=== PATIENT | male | born 1965 | race Caucasian/White ===

== ENCOUNTER 2017-02-17 09:30 | Emergency (ER) | payer OTHER ==
[~2017-02-17] VITALS: Ht 182.9 cm; Wt 118.0 kg
[~2017-02-17 09:30] MED LIST: BACT800T5 PO; CALTTAB5 PO; CITA20 PO; CLIN1CAP5 PO; PERC10TA27 PO; ROSU20 PO; WELL150T PO
[2017-02-17 09:32] VITALS: BP 177/95; PULSE 68; RESP 20; TEMP 99; O2SAT 98
--- NOTE | 2017-02-17 10:01 | PD ---
HPI Chief Complaint: ENT Complaint Time Seen by Provider: 10:00 Travel History International Travel<30 days: No Contact w/Intl Traveler<30days: No Traveled to known affect area: No History of Present Illness HPI 51-year-old male presents to emergency Department with complaint of left-sided throat pain since Sunday. He said it was horrible pain on . He called his primary care provider and they prescribed him a lidocaine mouth rinse that has not been helping. He has also been using cough drops that have not been helping. Is able to swallow his own saliva. Reports feeling a lump to the left side of his neck and throat. Denies nasal congestion, ear pain, cough. Denies fever, chills, nausea, vomiting. Allergies to Naprosyn. No other modifying factors or associated signs and symptoms. PFSH Past Medical History Hx Anticoagulant Therapy: Yes (XERALTO) Arthritis: Yes Asthma: Yes Atrial Fibrillation: Yes (PAROXYSMAL ATRIAL FIBRILLATION) Autoimmune Disease: No Blood Disorders: No Anxiety: No Depression: Yes (MAJOR DEPRESSION IN PARTIAL REMISSION) Heart Rhythm Problems: No Cancer: No Cardiovascular Problems: Yes High Cholesterol: Yes (HYPERLIPIDEMIA) Chemotherapy: No Chest Pain: No Congestive Heart Failure: Yes Cerebrovascular Accident: Yes Coronary Artery Disease: Yes Diabetes: Yes Diminished Hearing: No Endocrine: Yes GERD: No Genitourinary: No Headaches: Yes Hiatal Hernia: No Hypertension: Yes Immune Disorder: No Implanted Vascular Access Dvce: Yes Kidney Stones: No Musculoskeletal: Yes (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) Neurologic: Yes (MILD NONPROLIFERATIVE DIABETIC RETINOPATHY/ POLYNEUROPATHY) Psychiatric: Yes Reproductive: No Respiratory: Yes Integumentary: Yes Immunizations Current: Yes Migraines: No Myocardial Infarction: Yes Radiation Therapy: No Renal Failure: Yes (CHRONIC KIDNEY DISEASE STAGE IV) Sickle Cell Disease: No Sleep Apnea: Yes Thyroid Disease: Yes (HYPERTHYROIDISM) Ulcer: No Past Surgical History Abdominal Surgery: Yes (PEG) AICD: Yes (ST TAQUERIA) Arteriovenous Shunt: No Cardiac Surgery: Yes (PACEMAKER/ TAKEN OUT 2013, BYPASS) Ear Surgery: No Endocrine Surgery: No Eye Surgery: No Genitourinary Surgery: No Insulin Pump: No Joint Replacement: No Oral Surgery: No Pacemaker: No Thoracic Surgery: No Other Surgery: Yes (PENILE IMPLANT, GI BYPASS) Social History Alcohol Use: No Tobacco Use: No Substance Use: No Allergies-Medications (Allergen,Severity, Reaction): Coded Allergies: Naprosyn (Verified Allergy, Mild, GI UPSET, 02/17/17) *MDRO Multi-Drug Resistant Organism (Verified Adverse Reaction, Unknown, ) MRSA foot wound 07/2015. Reported Meds & Prescriptions Reported Meds & Active Scripts Active Clindamycin Hcl (Clindamycin HCl) 150 Mg Cap 1 Tab PO QID Bactrim DS (Sulfamethoxazole-Trimethoprim DS) 1 Tab Tab 1 Tab PO BID Reported Percocet 10/325 (Oxycodone/Acetaminophen) Oxycodone 10/325 Acetaminophen Tab 1 Tab PO 2-3 TIMES A DAY PRN Crestor (Rosuvastatin Calcium) 20 Mg Tab 20 Mg PO HS Wellbutrin Sr (Bupropion HCl) 150 Mg Tab 150 Mg PO DAILY Caltrate 600 (Calcium Carbonate) Tab 600 Mg PO DAILY Celexa 20 Mg Tab (Citalopram Hydrobromide) 20 Mg Tab 20 Mg PO DAILY Review of Systems Except as stated in HPI: all other systems reviewed are Neg Physical Exam Narrative GENERAL: Well-nourished, well-developed male patient, in no acute distress; low-grade fever 99.3; nontoxic-appearing; wheelchair-bound SKIN: Warm and dry. No rash. HEAD: Atraumatic. Normocephalic. EYES: Pupils equal and round at 3 mm with brisk reaction. No scleral icterus. No injection or drainage. PERRLA. ENT: Mucosa pink and dry. No Uvular edema. Left sided tonsillar deviation noted. No uvular deviation. Airway patent. EARS: Bilateral pinnae and external canals appear within normal limits. Bilateral tympanic membranes without erythema, dullness or perforation.. NECK: Trachea midline. Left Anterior cervical tenderness on palpation. CARDIOVASCULAR: Regular rate. RESPIRATORY: No accessory muscle use. GASTROINTESTINAL: Rounded. MUSCULOSKELETAL: Left BKA. No obvious deformities. No clubbing. No cyanosis. No edema. NEUROLOGICAL: Awake and alert. Oriented 3. No obvious cranial nerve deficits. Motor grossly within normal limits. Normal speech. Moves all extremities. PSYCHIATRIC: Appropriate mood and affect; insight and judgment normal. Data Data Last Documented VS Vital Signs Date Time Temp Pulse Resp B/P Pulse Ox O2 Delivery O2 Flow Rate FiO2 02/17/17 10:10 18 02/17/17 09:32 99.0 68 177/95 98 Room Air Orders Group A Rapid Strep Screen (02/17/17 10:07) Strep Culture (Group A) (02/17/17 10:10) MDM Medical Decision Making Medical Screen Exam Complete: Yes Emergency Medical Condition: Yes Medical Record Reviewed: Yes Differential Diagnosis Peritonsillar abscess, pharyngitis, strep throat Narrative Course 51-year-old male with suspected left-sided peritonsillar abscess. Patient was initially evaluated in fast track and moved to a medical pod. Dr. Lal will assume patient care and report was given. See his note for final disposition. Geneva Myles Feb 17, 2017 10:00
[2017-02-17] MEDS ORDERED: PRED20 PO (11:28)
[2017-02-17] MEDS ORDERED: CLIN1CAP5 PO (11:28)
--- NOTE | 2017-02-17 11:28 | PD ---
Physical Exam Narrative Patient was seen by physician activities assistant and signed out to me. Data Data Last Documented VS Vital Signs Date Time Temp Pulse Resp B/P Pulse Ox O2 Delivery O2 Flow Rate FiO2 02/17/17 10:10 18 02/17/17 09:32 99.0 68 177/95 98 Room Air Orders Group A Rapid Strep Screen (02/17/17 10:07) Strep Culture (Group A) (02/17/17 10:10) Ampicillin-Sulbactam Inj (Unasyn Inj) (02/17/17 11:30) Dexamethasone Inj (Decadron Inj) (02/17/17 11:30) Sodium Chlorid 0.9% 500 Ml Inj (Ns 500 M (02/17/17 11:45) MDM Supervised Visit with CHRISTIANO: Yes Differential Diagnosis Differential diagnosis including tonsillitis, tonsillitis with peritonsillar edema, peritonsillar abscess. Narrative Course 51-year-old male with sore throat started 3 days ago. Patient denies any shortness of breath. Patient has pain on left-sided throat with swallowing. Patient was seen by my activities assistant and signed out to me. On examination patient has edema redness swelling left-sided throat. No stridor or wheezes. Patient can swallow saliva. Unasyn 3 g IV. Decadron 8 mg IV. Diagnosis Primary Impression: Tonsillitis Additional Impression: Edema Qualified Code: R60.9 - Edema, unspecified type Patient Instructions: General Instructions Additional Instruction: Clindamycin and prednisone as directed. Return in a.m. for recheck. Return immediately if increasing shortness of breath or unable to swallow. Med/Other Pt SpecificInfo: Prescription(s) given Scripts Prednisone 20 Mg Tab20 Mg PO BID #14 TAB Prov:Oleg Lal MD 02/17/17 Clindamycin 150 Mg Cap2 Tab PO Q6H #80 CAP Prov:Oleg Lal MD 02/17/17 Disposition: 01 DISCHARGE HOME Condition: Stable Oleg Lal MD Feb 17, 2017 11:28
[2017-02-17] MEDS ORDERED: AMPICILLIN-SULBACTAM INJ 3 GM in SODIUM CHLORIDE 0.9% INJ 100 ML IV ONE (11:30)
[2017-02-17] MEDS ORDERED: DEXAMETHASONE SOD PHOS 4 MG/ML VIAL IV PUSH ONE (11:30)
[2017-02-17] MEDS ORDERED: SODIUM CHLORID 0.9% 500 ML INJ 500 ML IV ONE (11:45)
[2017-02-18] MEDS ORDERED: OMEP20TA PO (12:43)
[2017-02-18] MEDS ORDERED: CITA20TA4 PO (12:43)
[2017-02-18] MEDS ORDERED: LISI-515 PO (12:43)
[2017-02-18] MEDS ORDERED: METO-309 PO (12:43)
[2017-02-18] MEDS ORDERED: ROSU40 PO (12:43)
[2017-02-18] MEDS ORDERED: XARE15TA PO (12:43)
[2017-02-18] MEDS ORDERED: ISOS120T PO (12:43)
== END 2017-02-17 13:50 | disposition home or self-care (01) ==
LOC: NEPC 09:30
DX: J03.90 Acute tonsillitis, unspecified (principal); R60.9 Edema, unspecified; I48.0 Paroxysmal atrial fibrillation; E78.00 Pure hypercholesterolemia, unspecified; I50.9 Heart failure, unspecified; I25.10 Atherosclerotic heart disease of native coronary artery without angina pectoris; E11.9 Type 2 diabetes mellitus without complications; I12.9 Hypertensive chronic kidney disease with stage 1 through stage 4 chronic kidney disease, or unspecified chronic kidney disease; I25.2 Old myocardial infarction; N18.4 Chronic kidney disease, stage 4 (severe); E05.90 Thyrotoxicosis, unspecified without thyrotoxic crisis or storm; I69.359 Hemiplegia and hemiparesis following cerebral infarction affecting unspecified side; Z79.01 Long term (current) use of anticoagulants
CPT/HCPCS: 87081; 87880; 96365; 96366; 96375; 99283; J0295; J1100; J7040

== ENCOUNTER 2017-02-18 12:15 | Emergency (ER) | payer OTHER ==
[~2017-02-18] VITALS: Ht 182.9 cm; Wt 115.5 kg
[~2017-02-18 12:15] MED LIST changes: +PRED20 PO
[2017-02-18 12:21] VITALS: BP 172/76; PULSE 36; RESP 18; TEMP 97.7; O2SAT 97
[2017-02-18] MEDS ORDERED: ISOS120T PO (12:43)
[2017-02-18] MEDS ORDERED: METO-309 PO (12:43)
[2017-02-18] MEDS ORDERED: CITA20TA4 PO (12:43)
[2017-02-18] MEDS ORDERED: OMEP20TA PO (12:43)
[2017-02-18] MEDS ORDERED: LISI-515 PO (12:43)
[2017-02-18] MEDS ORDERED: XARE15TA PO (12:43)
[2017-02-18] MEDS ORDERED: ROSU40 PO (12:43)
[2017-02-18 12:55] VITALS: BP 149/69; PULSE 86; RESP 18; O2SAT 98
--- NOTE | 2017-02-18 13:11 | PD ---
HPI Chief Complaint: Medical Clearance Time Seen by Provider: 12:30 Travel History International Travel<30 days: No Contact w/Intl Traveler<30days: No Traveled to known affect area: No History of Present Illness HPI Patient comes back to the emergency department for recheck of a tonsillitis that diagnosed yesterday. Patient reports he feels greatly improved. Denies any fevers, difficulty swallowing, headache, nausea, vomiting, chest pain, shortness of breath, weakness, abdominal pain, neck pain, or diarrhea. States that he is going to corn picker his antibiotic after he leaves the emergency department and has a follow-up appointment with his primary care doctor on Sunday. He states he just came in because he was told to yesterday for recheck. PFSH Past Medical History Hx Anticoagulant Therapy: Yes Arthritis: Yes Asthma: Yes Atrial Fibrillation: Yes (PAROXYSMAL ATRIAL FIBRILLATION) Autoimmune Disease: No Blood Disorders: No Anxiety: No Depression: Yes Heart Rhythm Problems: No Cancer: No Cardiovascular Problems: Yes (CABG) High Cholesterol: Yes Chemotherapy: No Chest Pain: No Congestive Heart Failure: Yes Cerebrovascular Accident: Yes Coronary Artery Disease: Yes Diabetes: No Diminished Hearing: No Endocrine: Yes GERD: No Genitourinary: No Headaches: Yes Hiatal Hernia: No Hypertension: Yes Immune Disorder: No Implanted Vascular Access Dvce: Yes Kidney Stones: No Musculoskeletal: Yes (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) Neurologic: Yes (MILD NONPROLIFERATIVE DIABETIC RETINOPATHY/ POLYNEUROPATHY) Psychiatric: Yes Reproductive: No Respiratory: Yes Integumentary: Yes Immunizations Current: Yes Migraines: No Myocardial Infarction: Yes Radiation Therapy: No Renal Failure: Yes Sickle Cell Disease: No Sleep Apnea: Yes Thyroid Disease: Yes (HYPER) Ulcer: No Past Surgical History Abdominal Surgery: Yes AICD: Yes (ST TAQUERIA) Arteriovenous Shunt: No Cardiac Surgery: Yes (PACEMAKER/ TAKEN OUT 2013) Coronary Artery Bypass Graft: Yes Ear Surgery: No Endocrine Surgery: No Eye Surgery: No Genitourinary Surgery: Yes (prosthetic penis) Insulin Pump: No Joint Replacement: No Oral Surgery: No Pacemaker: No Thoracic Surgery: No Other Surgery: Yes (PENILE IMPLANT, PEG) Social History Alcohol Use: No Tobacco Use: No Substance Use: No Allergies-Medications (Allergen,Severity, Reaction): Coded Allergies: Naprosyn (Verified Allergy, Mild, GI UPSET, 02/18/17) *MDRO Multi-Drug Resistant Organism (Verified Adverse Reaction, Unknown, ) MRSA foot wound 07/2015. Reported Meds & Prescriptions Reported Meds & Active Scripts Active Reported Xarelto (Rivaroxaban) 15 Mg Tab 15 Mg PO DAILY Crestor (Rosuvastatin Calcium) 40 Mg Tab 40 Mg PO DAILY Omeprazole 20 Mg Tab 20 Mg PO DAILY Citalopram (Citalopram Hydrobromide) 20 Mg Tab 20 Mg PO DAILY Lopressor (Metoprolol Tartrate) 50 Mg Tab 50 Mg PO DAILY Lisinopril 20 Mg Tab 20 Mg PO DAILY Isosorbide Mononitrate ER (Isosorbide Mononitrate) 120 Mg Hima 120 Mg PO DAILY Review of Systems Except as stated in HPI: all other systems reviewed are Neg Physical Exam Narrative GENERAL: Well-developed, overly nourished, in no acute distress, and non-ill appearing. SKIN: Focused skin assessment warm and dry. HEAD: Atraumatic. Normocephalic. EYES: Pupils equal and round. EOMI. No scleral icterus. No injection or drainage. ENT: No nasal bleeding or discharge. Mucous membranes pink and moist. Tonsils are nonerythematous and without exudate. Uvula is midline. Patient is talking in full sentences and swallowing own saliva without difficulty. NECK: Trachea midline. No cervical lymphadenopathy. Supple. No nuclear rigidity. CARDIOVASCULAR: Regular rate and rhythm. No murmur appreciated. RESPIRATORY: No accessory muscle use. No respiratory distress. Clear to auscultation. Breath sounds equal bilaterally. GASTROINTESTINAL: Abdomen soft, non-tender, nondistended. Hepatic and splenic margins not palpable. Normal bowel sounds 4. No pulsatile mass. MUSCULOSKELETAL: No obvious deformities. No clubbing. No cyanosis. No edema. Full range of motion. Left BKA noted. NEUROLOGICAL: Awake and alert. No obvious cranial nerve deficits. Motor grossly within normal limits. Normal speech. PSYCHIATRIC: Appropriate mood and affect; insight and judgment normal. Data Data Last Documented VS Vital Signs Date Time Temp Pulse Resp B/P Pulse Ox O2 Delivery O2 Flow Rate FiO2 02/18/17 13:58 84 16 141/65 98 02/18/17 12:21 97.7 Orders Electrocardiogram (02/18/17 ) Ecg Monitoring (02/18/17 12:38) MDM Medical Decision Making Medical Screen Exam Complete: Yes Emergency Medical Condition: Yes Interpretation(s) EKG reviewed by Dr. Healy, shows sinus rhythm with ventricular rate of 84. No STEMI acute changes. Differential Diagnosis Peritonsillar abscess, tonsillitis, recheck, arrhythmia, bradycardia, other Narrative Course Secondary to patient's initial cardiac heart rate that was noted in triage. Patient was placed on a monitor and monitored in the ER with ventricular rate remaining in the 70s. EKG shows no acute abnormalities. Patient denies any symptoms. Discuss this case with Dr. Healy, prior discharge, who in agreement with plan of care and disposition. Patient stable for discharge and outpatient follow-up. Patient in no obvious distress upon re-evaluation. All EKG result(s) discussed with patient. Any questions/concerns in reference to patient diagnosis/ condition discussed and clarified prior to patient's discharge. Reinforced sheer importance of close follow up with patient's primary physician or primary care clinic. Instructed patient to return to ED immediately, if symptoms return/ worsen. Pt showed understanding of above instructions. Further instructions and recommendations were detailed in discharge paperwork. Pt ambulated without difficulty out of ED at discharge. Diagnosis Primary Impression: Tonsillitis Referrals: [facility] Patient Instructions: Bradycardia (ED), General Instructions Additional Instructions: Follow-up with your primary care physician in 2 days as scheduled for reevaluation of your low heart rate that was noted at triage and for recheck of tonsillitis. Take all medication as previously prescribed. Return to the emergency department if symptoms get worse. Disposition: 01 DISCHARGE HOME Condition: Stable Stalin Hope Feb 18, 2017 13:11
[2017-02-18 13:58] VITALS: BP 141/65; PULSE 84; RESP 16; O2SAT 98
--- NOTE | 2017-02-19 14:18 | EKG ---
Date Performed: 02/18/2017 Time Performed: 12:44:01 PTAGE: 51 years EKG: Sinus rhythm WITH FREQUENT Atrial PREMATURE COMPLEXES WITH OCCASIONAL SUPRAVENTRICULAR PREMATURE COMPLEXES ST DEV IATION AND MODERATE T-WAVE ABNORMALITY, CONSIDER LATERAL ISCHEMIA Possible inferior wall infarct. Sin ce the prior tracing, the frequent premature atrial contractions are new. Some are aberrantly conduct ed and PVCs cannot be entirely excluded, but there is no axis shift. There has been an overal increas e in the nonspecific ST T-wave changes. Clinical correlation remains important. An inferior wall infa rct of indeterminant age cannot be excluded. ABNORMAL ECG PREVIOUS TRACING : 12/16/2013 14.32 DOCTOR: Simran Quan Interpretating Date/Time 02/19/2017 14:17:47
== END 2017-02-18 14:26 | disposition home or self-care (01) ==
LOC: NEPD 12:15
DX: J03.90 Acute tonsillitis, unspecified (principal); I48.0 Paroxysmal atrial fibrillation; I50.9 Heart failure, unspecified; I25.10 Atherosclerotic heart disease of native coronary artery without angina pectoris; I10 Essential (primary) hypertension; I69.959 Hemiplegia and hemiparesis following unspecified cerebrovascular disease affecting unspecified side; I25.2 Old myocardial infarction; Z79.899 Other long term (current) drug therapy; Z51.89 Encounter for other specified aftercare
CPT/HCPCS: 93005

== ENCOUNTER 2017-07-24 18:48 | Inpatient (IN) | payer OTHER, MEDICAID, MEDICARE ==
[~2017-07-24] VITALS: Ht 182.9 cm; Wt 128.3 kg
[~2017-07-24 18:48] MED LIST changes: -BACT800T5 PO; -CALTTAB5 PO; -CITA20 PO; +CITA20TA4 PO; -CLIN1CAP5 PO; +ISOS120T PO; +LISI-515 PO; +METO-309 PO; +OMEP20TA PO; -PERC10TA27 PO; -PRED20 PO; -ROSU20 PO; +ROSU40 PO; -WELL150T PO; +XARE15TA PO
[2017-07-24 19:22] VITALS: BP 207/92; PULSE 68; RESP 20; TEMP 98.7; O2SAT 97
[2017-07-24] MEDS ORDERED: GLIP5TAB8 PO (19:22)
[2017-07-24] MEDS ORDERED: BUPR150XL PO (19:22)
[2017-07-24] MEDS ORDERED: DEXTROSE 50% IN WATER 50 ML SYRINGE IV PUSH ONE ×2 (19:30→22:00)
--- NOTE | 2017-07-24 19:57 | PD ---
HPI Chief Complaint: Diabetic Time Seen by Provider: 19:26 Travel History International Travel<30 days: No Contact w/Intl Traveler<30days: No Traveled to known affect area: No History of Present Illness HPI Patient is a 51-year-old male, with history of hypertension and diabetes as well as for strokes, who comes in complaining of low blood sugar. He takes glipizide for his diabetes, and his last dose was at 9 PM last night. He says he was feeling fine, but earlier this morning had an episode of low blood sugar. The fire department came and found her sugar to be 20, he was given dextrose and return to baseline so he was transported to the hospital. This happened again this evening and EMS arrived and again gave him dextrose. This time he is transported to the hospital. He currently has no complaints. He has residual left-sided weakness as well as confusion from his previous strokes. He denies chest pain, shortness of breath, fevers, abdominal pain, nausea or vomiting. He does say that he ate a turkey sandwich today. PFSH Past Medical History Hx Anticoagulant Therapy: Yes Arthritis: Yes Asthma: Yes Atrial Fibrillation: Yes (PAROXYSMAL ATRIAL FIBRILLATION) Autoimmune Disease: No Blood Disorders: No Anxiety: No Depression: Yes Heart Rhythm Problems: No Cancer: No Cardiovascular Problems: Yes (CABG) High Cholesterol: Yes Chemotherapy: No Chest Pain: No Congestive Heart Failure: Yes Cerebrovascular Accident: Yes Coronary Artery Disease: Yes Diabetes: Yes Patient Takes Glucophage: No Diminished Hearing: No Endocrine: Yes GERD: No Genitourinary: No Headaches: Yes Hiatal Hernia: No Hypertension: Yes Immune Disorder: No Implanted Vascular Access Dvce: Yes Kidney Stones: No Musculoskeletal: Yes (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) Neurologic: Yes (MILD NONPROLIFERATIVE DIABETIC RETINOPATHY/ POLYNEUROPATHY) Psychiatric: Yes Reproductive: No Respiratory: Yes Integumentary: Yes Immunizations Current: Yes Migraines: No Myocardial Infarction: Yes Radiation Therapy: No Renal Failure: Yes Sickle Cell Disease: No Sleep Apnea: Yes Thyroid Disease: Yes (HYPER) Ulcer: No Past Surgical History Abdominal Surgery: Yes (GASTRIC BYPASS) AICD: Yes (ST TAQUERIA) Arteriovenous Shunt: No Cardiac Surgery: Yes (PACEMAKER/ TAKEN OUT 2013) Coronary Artery Bypass Graft: Yes Ear Surgery: No Endocrine Surgery: No Eye Surgery: No Genitourinary Surgery: Yes (prosthetic penis) Insulin Pump: No Joint Replacement: No Oral Surgery: No Pacemaker: No Thoracic Surgery: No Other Surgery: Yes (PENILE IMPLANT, PEG) Social History Alcohol Use: Yes (SOCIAL) Tobacco Use: No Substance Use: No Allergies-Medications (Allergen,Severity, Reaction): Coded Allergies: naproxen (Unverified Allergy, Mild, GI UPSET, 07/24/17) *MDRO Multi-Drug Resistant Organism (Verified Adverse Reaction, Unknown, ) MRSA foot wound 07/2015. Reported Meds & Prescriptions Reported Meds & Active Scripts Active Reported Wellbutrin Xl 24 HR (Bupropion HCl) 150 Mg Tab 150 Mg PO DAILY Glipizide 5 Mg Tab 5 Mg PO DAILY Take 30 minutes before a meal Crestor (Rosuvastatin Calcium) 40 Mg Tab 40 Mg PO DAILY Omeprazole 20 Mg Tab 20 Mg PO DAILY Citalopram (Citalopram Hydrobromide) 20 Mg Tab 20 Mg PO DAILY Lopressor (Metoprolol Tartrate) 50 Mg Tab 50 Mg PO DAILY Lisinopril 20 Mg Tab 20 Mg PO DAILY Isosorbide Mononitrate ER (Isosorbide Mononitrate) 120 Mg Hima 120 Mg PO DAILY Review of Systems Except as stated in HPI: all other systems reviewed are Neg General / Constitutional: No: Fever, Chills Eyes: No: Blurred Vision HENT: No: Headaches, Lightheadedness Cardiovascular: No: Chest Pain or Discomfort Respiratory: No: Shortness of Breath Gastrointestinal: No: Nausea, Vomiting, Abdominal Pain Musculoskeletal: No: Myalgias, Pain Skin: No Rash, No Change in Pigmentation Neurologic: No: Weakness, Dizziness Physical Exam Narrative GENERAL: Awake and alert, in no acute distress. SKIN: Focused skin assessment warm/dry. HEAD: Atraumatic. Normocephalic. EYES: Pupils equal and round. No scleral icterus. EOMI. ENT: Mucous membranes pink and moist. NECK: Trachea midline. No JVD. CARDIOVASCULAR: Regular rate and rhythm. No murmur appreciated. RESPIRATORY: No accessory muscle use. Clear to auscultation. Breath sounds equal bilaterally. GASTROINTESTINAL: Abdomen soft, non-tender, nondistended. MUSCULOSKELETAL: No obvious deformities. No clubbing. No cyanosis. Large edema of right lower extremity, BKA left extremity. NEUROLOGICAL: Awake and alert. No obvious cranial nerve deficits. Weakness on the left, good strength on the right. Normal speech. PSYCHIATRIC: Appropriate mood and affect; insight and judgment normal. Data Data Last Documented VS Vital Signs Date Time Temp Pulse Resp B/P (MAP) Pulse Ox O2 Delivery O2 Flow Rate FiO2 07/24/17 21:29 67 18 233/99 (143) 97 Room Air 07/24/17 19:22 98.7 Orders Orders Iv Access Insert/Monitor (07/24/17 19:26) Complete Blood Count With Diff (07/24/17 19:26) Comprehensive Metabolic Panel (07/24/17 19:26) Urinalysis - C+S If Indicated (07/24/17 19:26) Troponin I (07/24/17 19:26) Electrocardiogram (07/24/17 ) Chest, Single Ap (07/24/17 ) Dextrose 50% In Boogie (Syr) Inj (D50w (Syr (07/24/17 19:30) Ct Brain W/O Iv Contrast(Rout) (07/24/17 ) Octreotide Inj (Sandostatin Inj) (07/24/17 21:00) Dextrose 5%-Lactated Ring Inj (D5-Lr Inj (07/24/17 21:00) Metoprolol Succinate Er (Toprol Xl) (07/24/17 21:00) Dextrose 50% In Boogie (Syr) Inj (D50w (Syr (07/24/17 22:00) Dextrose 10% Inj (D... W/Sodium Chloride (07/24/17 22:15) Admit Order (Ed Use Only) (07/24/17 ) Hydralazine Inj (Apresoline Inj) (07/24/17 22:30) Nitroglycerin 2% Oint (Nitroglycerin 2% (07/24/17 22:30) Labs Laboratory Tests Test 07/24/17 19:35 07/24/17 20:00 White Blood Count 9.6 TH/MM3 Red Blood Count 3.61 MIL/MM3 Hemoglobin 10.5 GM/DL Hematocrit 32.7 % Mean Corpuscular Volume 90.5 FL Mean Corpuscular Hemoglobin 29.2 PG Mean Corpuscular Hemoglobin Concent 32.3 % Red Cell Distribution Width 15.7 % Platelet Count 234 TH/MM3 Mean Platelet Volume 8.5 FL Neutrophils (%) (Auto) 79.4 % Lymphocytes (%) (Auto) 10.4 % Monocytes (%) (Auto) 8.1 % Eosinophils (%) (Auto) 1.5 % Basophils (%) (Auto) 0.6 % Neutrophils # (Auto) 7.6 TH/MM3 Lymphocytes # (Auto) 1.0 TH/MM3 Monocytes # (Auto) 0.8 TH/MM3 Eosinophils # (Auto) 0.1 TH/MM3 Basophils # (Auto) 0.1 TH/MM3 CBC Comment DIFF FINAL Differential Comment Blood Urea Nitrogen 58 MG/DL Creatinine 4.95 MG/DL Random Glucose 33 MG/DL Total Protein 5.6 GM/DL Albumin 1.9 GM/DL Calcium Level 7.6 MG/DL Alkaline Phosphatase 72 U/L Aspartate Amino Transf (AST/SGOT) 10 U/L Alanine Aminotransferase (ALT/SGPT) 11 U/L Total Bilirubin 0.3 MG/DL Sodium Level 141 MEQ/L Potassium Level 4.6 MEQ/L Chloride Level 111 MEQ/L Carbon Dioxide Level 20.0 MEQ/L Anion Gap 10 MEQ/L Estimat Glomerular Filtration Rate 12 ML/MIN Troponin I 0.03 NG/ML Urine Color LIGHT-YELLOW Urine Turbidity CLEAR Urine pH 6.0 Urine Specific [place] 1.010 Urine Protein 300 mg/dL Urine Glucose (UA) NEG mg/dL Urine Ketones NEG mg/dL Urine Occult Blood TRACE Urine Nitrite NEG Urine Bilirubin NEG Urine Urobilinogen LESS THAN 2.0 MG/DL Urine Leukocyte Esterase NEG Urine RBC LESS THAN 1 /hpf Urine WBC LESS THAN 1 /hpf Urine Bacteria RARE /hpf Urine Hyaline Casts 1 /lpf Urine Mucus FEW /lpf Microscopic Urinalysis Comment CULT NOT INDICATED MDM Medical Decision Making Medical Screen Exam Complete: Yes Emergency Medical Condition: Yes Medical Record Reviewed: Yes Interpretation(s) ECG shows normal sinus rhythm with first-degree AV block. He has T-wave inversions in lead 1 and aVL, unchanged from previous. Differential Diagnosis Renal failure versus glipizide overdose versus sepsis Narrative Course Patient is a 52-year-old male who comes in due to episodes of hypoglycemia. He is found to have a sugar of 40. He was given a dose of D50. It was, labs sent. Labs show a glucose of 33 and a creatinine of 4.95. Patient was given another amp of D50. Given something to drink and started on a D5 drip. Chest x-ray shows no acute abnormalities. CT of his head shows no acute abnormalities. Patient continued to have sugars in the 40s. He was given a dose of octreotide. Patient will be admitted to the ICU for frequent glucose checks. He is switched to D10. Diagnosis Primary Impression: Hypoglycemia Additional Impression: Acute kidney injury Admitting Information Admitting Physician Requests: Admit Condition: Stable Cinthia Torres MD Jul 24, 2017 19:57
--- NOTE | 2017-07-24 20:11 | RADRPT ---
EXAM DATE/TIME: 07/24/2017 19:43 [facility] COMPARISON: CHEST SINGLE AP, April 21, 2015, 12:17. INDICATIONS : Cough, shortness of breath. MEDICAL HISTORY : Diabetes. SURGICAL HISTORY : Previous CABG ENCOUNTER: Initial ACUITY: 1 day PAIN SCORE: 0/10 LOCATION: Bilateral chest FINDINGS: No infiltrate, effusion or pneumothorax seen. Heart size stable, mild to moderately enlarged. Patient has had previous median sternotomy. CONCLUSION: Mild to moderate stable, compensated cardiomegaly. No acute cardiopulmonary disease demonstrated. Mark Jett MD on July 24, 2017 at 20:09 Board Certified Radiologist. This report was verified electronically.
[2017-07-24 20:33] LABS: AUTOMATED NEUTROPHIL # 7.6 TH/MM3 (1.8-7.7); BASOPHIL # 0.1 TH/MM3 (0-0.2); BASOPHIL % 0.6 % (0.0-2.0); EOSINOPHIL # 0.1 TH/MM3 (0-0.4); EOSINOPHIL % 1.5 % (0.0-4.0); HEMATOCRIT 32.7 % (39.0-51.0); HEMO FLAGS DIFF FINAL; LYMPH % 10.4 % (9.0-44.0); MEAN CELL VOLUME 90.5 FL (80.0-100.0); MEAN CORPUSCULAR HEMOGLOBIN 29.2 PG (27.0-34.0); MEAN CORPUSCULAR HGB CONC 32.3 % (32.0-36.0); MONO % 8.1 % (0.0-8.0); NEUT % 79.4 % (16.0-70.0); PLATELET COUNT 234 TH/MM3 (150-450); RED BLOOD COUNT 3.61 MIL/MM3 (4.50-5.90); RED CELL DISTRIBUTION WIDTH 15.7 % (11.6-17.2); WHITE BLOOD COUNT 9.6 TH/MM3 (4.0-11.0)
[2017-07-24 20:47] LABS: BACTERIA, URINE RARE /hpf; BLOOD, URINE TRACE (NEG); GLUCOSE,URINE NEG (NEG); HYALINE CAST, URINE 1 /lpf (RARE); KETONE, URINE NEG (NEG); MUCUS URINE FEW /lpf (OCC); NITRITE,URINE NEG (NEG); URINE COLOR LIGHT-YELLOW (YELLW/STRAW)
[2017-07-24 20:48] LABS: COMMENT (UR) CULT NOT INDICATED; CULTURE IF INDICATED CULT NOT INDICATED
[2017-07-24 20:56] LABS: ALKALINE PHOSPHATASE 72 U/L (45-117); ALT (GPT) 11 U/L (12-78); ANION GAP 10 MEQ/L (5-15); AST (GOT) 10 U/L (15-37); BLOOD UREA NITROGEN 58 MG/DL (7-18); CHLORIDE 111 MEQ/L (98-107); GLOMERULAR FILTRATION RATE 12 ML/MIN (>89); POTASSIUM 4.6 MEQ/L (3.5-5.1); SODIUM (NA) 141 MEQ/L (136-145); TOTAL BILIRUBIN ADULT 0.3 MG/DL (0.2-1.0)
[2017-07-24] MEDS ORDERED: OCTREOTIDE INJ 50 MCG/ML AMP SQ ONE (21:00)
[2017-07-24] MEDS ORDERED: DEXTROSE 5%-LACTATED RING INJ 1,000 ML IV SCH (21:00)
[2017-07-24] MEDS ORDERED: METOPROLOL SUCCINATE 50 MG EXTENDED RELEASE TAB PO ONE (21:00)
[2017-07-24 21:29] VITALS: BP 233/99; PULSE 67; RESP 18; O2SAT 97
--- NOTE | 2017-07-24 21:50 | RADRPT ---
EXAM DATE/TIME: 07/24/2017 21:12 [facility] COMPARISON: Report only, CT BRAIN W/O CONTRAST, December 18, 2009, 20:27. INDICATIONS : Altered mental status. RADIATION DOSE: 56.35 CTDIvol (mGy) MEDICAL HISTORY : Cardiovascular disease. Hypertension. Renal failure, acute.A-fib, CHF SURGICAL HISTORY : CABG ENCOUNTER: Initial ACUITY: 1 day PAIN SCALE: 0/10 LOCATION: cranial TECHNIQUE: Multiple contiguous axial images were obtained of the head. Using automated exposure control and adj ustment of the mA and/or kV according to patient size, radiation dose was kept as low as reasonably a chievable to obtain optimal diagnostic quality images. DICOM format image data is available electro nically for review and comparison. FINDINGS: CEREBRUM: The ventricles are normal for age. No evidence of midline shift, mass lesion, hemorrhage or acute in farction. No extra-axial fluid collections are seen. Old left parietal and temporal lobe infarct, by report unchanged. POSTERIOR FOSSA: The cerebellum and brainstem are intact. The 4th ventricle is midline. The cerebellopontine angle i s unremarkable. EXTRACRANIAL: The visualized portion of the orbits is intact. SKULL: The calvaria is intact. No evidence of skull fracture. CONCLUSION: Exam no acute intracranial abnormality. Old left MCA distribution infarct. Mark Jett MD on July 24, 2017 at 21:47 Board Certified Radiologist. This report was verified electronically.
[2017-07-24 22:22] VITALS: BP 186/92; PULSE 64; RESP 18; O2SAT 97
[2017-07-24] MEDS ORDERED: MAGNESIUM HYDROXIDE SUSP 30 ML CUP PO PRN (22:30)
[2017-07-24] MEDS ORDERED: ACETAMINOPHEN 325 MG TAB PO PRN (22:30)
[2017-07-24] MEDS ORDERED: SODIUM CHLORIDE 0.9% FLUSH 10 ML FLUSH IV FLUSH PRN (22:30)
[2017-07-24] MEDS ORDERED: LACTULOSE SYRUP 20 GM/30 ML CUP PO PRN (22:30)
[2017-07-24] MEDS ORDERED: BISACODYL 10 MG SUPP RECTAL PRN (22:30)
[2017-07-24] MEDS ORDERED: ONDANSETRON HCL 4 MG/2 ML VIAL IV PUSH PRN (22:30)
[2017-07-24] MEDS ORDERED: SENNOSIDES 8.6 MG TAB PO PRN (22:30)
[2017-07-24] MEDS ORDERED: RESP: ALBUTEROL 2.5 MG/3 ML NEB (PRN) INH (22:30)
[2017-07-24] MEDS ORDERED: MISCELLANEOUS NURSING INFORMATION XX SCH (22:30)
[2017-07-24] MEDS ORDERED: CHLORHEXIDINE GLUCONATE 2 % 1 PACK (2 CLOTHS) TOP PRN (22:30)
--- NOTE | 2017-07-24 22:32 | HHI.HP ---
[facility] Service Critical Care Medicine Primary Care Physician Debora Cooper MD Admission Diagnosis Hypoglycemia Diagnosis: (1) Hypoglycemia Diagnosis: Principal (2) Gastroesophageal reflux disease Diagnosis: Principal (3) Hypoalbuminemia Diagnosis: Principal (4) Normocytic anemia Diagnosis: Principal (5) Severe uncontrolled hypertension Diagnosis: Principal (6) Hypertension Diagnosis: Principal (7) Ischemic cardiomyopathy Diagnosis: Secondary (8) DM (diabetes mellitus), type 2, uncontrolled Diagnosis: Secondary (9) Acute worsening of stage 4 chronic kidney disease Diagnosis: Principal Chief Complaint: Altered mental status secondary to hypoglycemia Travel History International Travel<30 Days: No Contact w/Intl Traveler <30 Da: No Traveled to Known Affected Are: No History of Present Illness Patient is a 51-year-old male redo of admission 07/24/2017. Past medical history includes coronary disease three-vessel status post CABG 2014, , arthritis, asthma, paroxysmal A. fib on Xarelto, depression, cardiomyopathy status post BIV -AICD by Dr. Shea tapia secondary to sepsis, hyperlipidemia, CVA with residual left-sided weakness, coronary artery disease status post NM on aspirin, diabetes mellitus with retinopathy, neuropathy and neuropathy, hypertension, DIXIE and chronic kidney disease stage IV followed by Dr. Quintana. This gentleman presented to [facility] complaining of low blood sugar. He takes glipizide for his diabetes, and his last dose was at 9 PM last night. He says he was feeling fine, but earlier this morning had an episode of low blood sugar is baseline creatinines around 2.7. Is currently 4.95.. The fire department came and found her sugar to be 20, he was given dextrose and return to baseline so he was transported to the hospital. This happened again this evening and EMS arrived and again gave him dextrose. This time he is transported to the hospital. He currently has no complaints. He has residual left-sided weakness as well as confusion from his previous strokes. He denies chest pain, shortness of breath, fevers, abdominal pain, nausea or vomiting. He does say that he ate a turkey sandwich today. Patient has been started on D10 drip. TSH, cortisol and infectious workup is currently pending. LFTs within normal limits. He was given 50 g octreotide 1 for sulfonurea use. Acute kidney injury. Review of Systems Constitutional: DENIES: Fatigue, Fever Endocrine: DENIES: Polydipsia, Polyuria Eyes: DENIES: Blurred vision Ears, nose, mouth, throat: DENIES: Tinnitus Respiratory: DENIES: Apneas Cardiovascular: DENIES: Chest pain Gastrointestinal: DENIES: Black stools, Constipation, Nausea, Vomiting Genitourinary: DENIES: Urgency Musculoskeletal: DENIES: Neck pain Integumentary: COMPLAINS OF: Abnormal pigmentation Hematologic/lymphatic: COMPLAINS OF: Lymphadenopathy, DENIES: Bruising Immunologic/allergic: DENIES: Eczema Neurologic: DENIES: Abnormal gait, Headache Psychiatric: COMPLAINS OF: Confusion, DENIES: Anxiety Past Family Social History Allergies: Coded Allergies: naproxen (Unverified Allergy, Mild, GI UPSET, 07/24/17) *MDRO Multi-Drug Resistant Organism (Verified Adverse Reaction, Unknown, ) MRSA foot wound 07/2015. Past Medical History DIXIE Asthma Chronic kidney disease stage IV Dilated cardiomyopathy Depression/anxiety History of left MCA CVA Hypertension Dyslipidemia Gastroesophageal reflux disease Shayla's mouth with retinopathy, neuropathy and nephropathy History of CABG 3 Atrial fibrillation paroxysmal Hiatal hernia Past Surgical History CABG 3 Trach/PEG Prosthetic penis Left [id number]-ght-[id number] amputation Reported Medications Wellbutrin Xl 24 HR (Bupropion HCl) 150 Mg Tab 150 Mg PO DAILY Glipizide 5 Mg Tab 5 Mg PO DAILY Take 30 minutes before a meal Crestor (Rosuvastatin Calcium) 40 Mg Tab 40 Mg PO DAILY Omeprazole 20 Mg Tab 20 Mg PO DAILY Citalopram (Citalopram Hydrobromide) 20 Mg Tab 20 Mg PO DAILY Lopressor (Metoprolol Tartrate) 50 Mg Tab 50 Mg PO DAILY Lisinopril 20 Mg Tab 20 Mg PO DAILY Isosorbide Mononitrate ER (Isosorbide Mononitrate) 120 Mg Hima 120 Mg PO DAILY Active Ordered Medications Reviewed in EMR Family History Positive for diabetes otherwise unremarkable Social History Quit tobacco several years ago. Rare alcohol use. Denies IV drug use. Physical Exam Vital Signs Vital Signs Date Time Temp Pulse Resp B/P (MAP) Pulse Ox O2 Delivery O2 Flow Rate FiO2 07/24/17 22:22 64 18 186/92 (123) 97 Room Air 07/24/17 21:29 67 18 233/99 (143) 97 Room Air 07/24/17 19:22 98.7 68 20 207/92 (130) 97 Physical Exam GENERAL: 52-year-old male, very pleasant currently resting in bed in no acute distress SKIN: Warm and dry. Chronic venous stasis right lower extremity. Left lower extremity stump without ulceration HEAD: Atraumatic. Normocephalic. EYES: Pupils equal and round about 2 mm bilaterally and reactive. No scleral icterus. No injection or drainage. ENT: No nasal bleeding or discharge. Mucous membranes pink and moist. NECK: Trachea midline. No JVD. CARDIOVASCULAR: Regular rate and rhythm. S1, S2 no S4. Without murmur RESPIRATORY: NClear to auscultation. Breath sounds equal bilaterally. GASTROINTESTINAL: Abdomen soft, non-tender, nondistended. Hypoactive bowel sounds appreciated MUSCULOSKELETAL: Extremities with 2+ right lower extremity peripheral edema. History of left below-knee amputation. NEUROLOGICAL: Awake and alert. No obvious cranial nerve deficits. Motor grossly within normal limits. Five out of 5 muscle strength in the arms and legs. Normal speech. Decreased sensation to light touch and pinprick right lower extremity PSYCHIATRIC: Appropriate mood and affect; insight and judgment normal. Laboratory Laboratory Tests Test 07/24/17 19:35 07/24/17 20:00 White Blood Count 9.6 Red Blood Count 3.61 Hemoglobin 10.5 Hematocrit 32.7 Mean Corpuscular Volume 90.5 Mean Corpuscular Hemoglobin 29.2 Mean Corpuscular Hemoglobin Concent 32.3 Red Cell Distribution Width 15.7 Platelet Count 234 Mean Platelet Volume 8.5 Neutrophils (%) (Auto) 79.4 Lymphocytes (%) (Auto) 10.4 Monocytes (%) (Auto) 8.1 Eosinophils (%) (Auto) 1.5 Basophils (%) (Auto) 0.6 Neutrophils # (Auto) 7.6 Lymphocytes # (Auto) 1.0 Monocytes # (Auto) 0.8 Eosinophils # (Auto) 0.1 Basophils # (Auto) 0.1 CBC Comment DIFF FINAL Differential Comment Blood Urea Nitrogen 58 Creatinine 4.95 Random Glucose 33 Total Protein 5.6 Albumin 1.9 Calcium Level 7.6 Alkaline Phosphatase 72 Aspartate Amino Transf (AST/SGOT) 10 Alanine Aminotransferase (ALT/SGPT) 11 Total Bilirubin 0.3 Sodium Level 141 Potassium Level 4.6 Chloride Level 111 Carbon Dioxide Level 20.0 Anion Gap 10 Estimat Glomerular Filtration Rate 12 Troponin I 0.03 Urine Color LIGHT-YELLOW Urine Turbidity CLEAR Urine pH 6.0 Urine Specific Dexter 1.010 Urine Protein 300 Urine Glucose (UA) NEG Urine Ketones NEG Urine Occult Blood TRACE Urine Nitrite NEG Urine Bilirubin NEG Urine Urobilinogen LESS THAN 2.0 Urine Leukocyte Esterase NEG Urine RBC LESS THAN 1 Urine WBC LESS THAN 1 Urine Bacteria RARE Urine Hyaline Casts 1 Urine Mucus FEW Microscopic Urinalysis Comment CULT NOT INDICATED Result Diagram: 07/24/17193407/24/17 193 Imaging Last Impressions Head CT 07/24/17 0000 Signed Impressions: Service Date/Time: Monday, July 24, 2017 21:12 - CONCLUSION: Exam no acute intracranial abnormality. Old left MCA distribution infarct. Mark Jett MD Chest X-Ray 07/24/17 0000 Signed Impressions: Service Date/Time: Monday, July 24, 2017 19:43 - CONCLUSION: Mild to moderate stable, compensated cardiomegaly. No acute cardiopulmonary disease demonstrated. MD Ashley Frazieri VTE Risk Assessment Caprini VTE Risk Assessment: Mod/High Risk (score >= 2) VTE [facility] Contraindication: LE injury/wound Caprini Risk Assessment Model Point Value = 1 Point Value = 2 Point Value = 3 Point Value = 5 Age 41-60 Minor surgery BMI > 25 kg/m2 Swollen legs Varicose veins or History of unexplained or recurrent spontaneous Oral contraceptives or hormone replacement Sepsis (< 1 month) Serious lung disease, including pneumonia (< 1 month) Abnormal pulmonary function Acute myocardial infarction Congestive heart failure (< 1 month) History of inflammatory bowel disease Medical patient at bed rest Age 61-74 Arthroscopic surgery Major open surgery (> 45 min) Laparoscopic surgery (> 45 min) Malignancy Confined to bed (> 72 hours) Immobilizing plaster cast Central venous access Age >= 75 History of VTE Family history of VTE Factor V Leiden Prothrombin [id number] Lupus anticoagulant Anticardiolipin antibodies Elevated serum homocysteine Heparin-induced thrombocytopenia Other congenital or acquired thrombophilia Stroke (< 1 month) Elective arthroplasty Hip, pelvis, or leg fracture Acute spinal cord injury (< 1 month) Prophylaxis Regimen Total Risk Factor Score Risk Level Prophylaxis Regimen 0-1 Low Early ambulation 2 Moderate Order ONE of the following: *Sequential Compression Device (SCD) *Heparin 5000 units SQ BID 3-4 Higher Order ONE of the following medications: *Heparin 5000 units SQ TID *Enoxaparin/Lovenox 40 mg SQ daily (WT < 150 kg, CrCl > 30 mL/min) *Enoxaparin/Lovenox 30 mg SQ daily (WT < 150 kg, CrCl > 10-29 mL/min) *Enoxaparin/Lovenox 30 mg SQ BID (WT < 150 kg, CrCl > 30 mL/min) AND/OR *Sequential Compression Device (SCD) 5 or more Highest Order ONE of the following medications: *Heparin 5000 units SQ TID (Preferred with Epidurals) *Enoxaparin/Lovenox 40 mg SQ daily (WT < 150 kg, CrCl > 30 mL/min) *Enoxaparin/Lovenox 30 mg SQ daily (WT < 150 kg, CrCl > 10-29 mL/min) *Enoxaparin/Lovenox 30 mg SQ BID (WT < 150 kg, CrCl > 30 mL/min) AND *Sequential Compression Device (SCD) Assessment and Plan Assessment and Plan Neuro/Psych: Diabetic neuropathy History of left MCA CVA CT brain 07/24 revealed no acute intracranial pain. Old left MCA CVA distribution. Acetaminophen for fever [place]/morphine for pain management Continue Citalopram 20 mg daily and bupropion 150 mg by mouth daily for depression CV: Dilated cardiopathy Dyslipidemia Hypertension Coronary disease status post CABG 3 - Dr. Stein History of paroxysmal atrial fibrillation Patient is currently on metoprolol 50 mg daily, isosorbide mononitrate 120 mg daily, lisinopril 20 mg daily for hypertension. Holding lisinopril secondary to acute kidney injury Intermittently on Bumetanide. Denies any chest pain or shortness of breath currently. Continue rosuvastatin 40 mg by mouth daily for dyslipidemia Resp: History of DIXIE History of asthma Cannula to maintain saturations greater than equal to 92% Incentive spirometry while awake GI: Gastroesophageal reflux disease Hypoalbuminemia Placed on ADA diet Pantoprazole for GI prophylaxis. On omeprazole 20 mg by mouth daily at home Docusate sodium/senna 1 tablet twice a day for bowel regimen : No indication for Jensen catheter Endo: Diabetes mellitus with retinopathy, nephropathy and neuropathy History of thyroid storm per patient Hypoglycemia Holding glyburide 5 mill grams by mouth twice a day. Sliding scale insulin Accu-Cheks to maintain euglycemia Early on D10 at 75 cc an hour. Accu-Cheks every hour's. Received octreotide 50 g subcutaneous 3 times a day Renal: Acute on chronic kidney injury stage IV to [address] Quintana Check renal ultrasound and urine electrolytes/eosinophils Avoid nephrotoxic drugs. Lisinopril held Heme: Normocytic anemia Chronic rivaroxaban use Holding Rivaroxaban in light of acute kidney injury. Monitor CBC daily. Follow trends. No indications for transfusion of blood process at this time. ID: Monitor for infection Blood cultures 09/11 drawn Msk: History of left below-knee amputation Physical therapy evaluate and treat FEN: Replacing electrolytes as clinically indicated Access - Utilize peripheral IV. Central line if indicated Prophylaxis - GI - Protonix - DVT - SCD/Rivaroxaban on hold in light of acute kidney injury Level III admission Code Status Full code Discussed Condition With Patient. Care plan discussed and all questions answered. Problem Qualifiers (1) Gastroesophageal reflux disease: Qualified Codes: K21.9 - Gastro-esophageal reflux disease without esophagitis (2) Hypertension: Qualified Codes: I10 - Essential (primary) hypertension (3) DM (diabetes mellitus), type 2, uncontrolled: Qualified Codes: E11.59 - Type 2 diabetes mellitus with other circulatory complications; E11.65 - Type 2 diabetes mellitus with hyperglycemia; Z79.4 - FDC (current) use of insulin Ede Elias MD Jul 24, 2017 22:32
[2017-07-24] MEDS: SODIUM CHLORIDE 23.4% INJ 154 MEQ in DEXTROSE 10% INJ 1,000 ML IV SCH (22:33)
[2017-07-24 23:30] VITALS: BP 196/93; PULSE 66; RESP 18; O2SAT 97
[2017-07-24] MEDS: hydrALAZINE HCL 20 MG/ML VIAL IV PUSH PRN (23:35)
[2017-07-24 23:45] VITALS: O2SAT 97
[2017-07-24] MEDS: RESP: ALBUTEROL 2.5 MG/IPRATROPIUM 0.5 MG NEB (SCH) INH (23:54)
[2017-07-25] VITALS (19 sets, daily range): BP systolic 176–223; BP diastolic 79–102; PULSE 64–79; RESP 16–36; TEMP 98–98.5; O2SAT 93–99
[2017-07-25] MEDS: NITROGLYCERIN 2% OINT 1 GM PACKET TOPICAL PRN (01:52)
[2017-07-25] MEDS: RESP: ALBUTEROL 2.5 MG/IPRATROPIUM 0.5 MG NEB (SCH) INH ×5 (03:08→20:01)
[2017-07-25 03:34] LABS: AUTOMATED NEUTROPHIL # 6.3 TH/MM3 (1.8-7.7); BASOPHIL # 0.1 TH/MM3 (0-0.2); BASOPHIL % 0.8 % (0.0-2.0); EOSINOPHIL # 0.3 TH/MM3 (0-0.4); EOSINOPHIL % 3.2 % (0.0-4.0); HEMATOCRIT 31.1 % (39.0-51.0); HEMO FLAGS DIFF FINAL; LYMPH % 14.4 % (9.0-44.0); LYMPHOCYTE # 1.2 TH/MM3 (1.0-4.8); MEAN CELL VOLUME 90.8 FL (80.0-100.0); MEAN CORPUSCULAR HEMOGLOBIN 28.9 PG (27.0-34.0); MEAN CORPUSCULAR HGB CONC 31.8 % (32.0-36.0); MONO % 6.1 % (0.0-8.0); NEUT % 75.5 % (16.0-70.0); PLATELET COUNT 221 TH/MM3 (150-450); RED BLOOD COUNT 3.42 MIL/MM3 (4.50-5.90); RED CELL DISTRIBUTION WIDTH 15.4 % (11.6-17.2); WHITE BLOOD COUNT 8.3 TH/MM3 (4.0-11.0)
[2017-07-25 03:38] LABS: APTT (PATIENT) 40.8 SEC (24.3-30.1); INTERNATIONAL NORMALIZED RATIO 1.1 RATIO
[2017-07-25] MEDS: hydrALAZINE HCL 20 MG/ML VIAL IV PUSH PRN ×4 (03:54→15:49)
[2017-07-25] MEDS: CHLORHEXIDINE GLUCONATE 2 % 1 PACK (2 CLOTHS) TOP SCH (03:54)
[2017-07-25 04:03] LABS: BICARBONATE 19.2 MEQ/L (21.0-32.0); CALCIUM-PROTEIN CORRECTED 7.8 MG/DL (8.5-10.1); MAGNESIUM 1.9 MG/DL (1.5-2.5); POTASSIUM 5.4 MEQ/L (3.5-5.1); TOTAL BILIRUBIN ADULT 0.3 MG/DL (0.2-1.0)
[2017-07-25] MEDS: OCTREOTIDE INJ 50 MCG/ML AMP SQ SCH ×3 (06:00→22:00)
[2017-07-25] MEDS: SODIUM CHLORIDE 0.9% FLUSH 10 ML FLUSH IV FLUSH SCH ×2 (09:00→20:24)
[2017-07-25] MEDS ORDERED: METOPROLOL TARTRATE 50 MG TAB PO SCH (09:00)
[2017-07-25] MEDS ORDERED: LISINOPRIL 20 MG TAB PO SCH (09:00)
[2017-07-25] MEDS ORDERED: RIVAROXABAN 15 MG TAB PO SCH (09:00)
--- NOTE | 2017-07-25 09:10 | RADRPT ---
EXAM DATE/TIME: 07/25/2017 08:06 [facility] COMPARISON: No previous studies available for comparison. EXTERNAL COMPARISON : [facility], US LEG, RIGHT VENOUS DOPPLER, March 08, 2017 INDICATIONS : Right leg edema. MEDICAL HISTORY : Hyperthyroidism. Myocardial infarction. Congestive heart failure. Mild nonproliferative diabetic r etinopathy/polyneuropathy. CVA. Confusion. Coronary artery disease. Hypercholesterolemia. Afib. Asthm a. HTN. Sleep apnea. Dyspnea. Dysphagia. Renal failure. Diabetes. Arthritis. Hemiplegia. Depression. Anticoagulant therapy. MRSA. SURGICAL HISTORY : CABG Pacemaker. Gastric bypass. Prosthetic penis. Left BKA. PEG tube. ENCOUNTER: Initial ACUITY: 2 weeks PAIN SCORE: 0/10 LOCATION: Right leg. TECHNIQUE: Venous ultrasound of the leg was performed from the inguinal ligament to the proximal calf. Real-esa e, color Doppler and spectral tracing, compression and augmentation techniques were used. FINDINGS: There is normal compressibility of the deep venous system from the inguinal region to the proximal ca lf. No echogenic clot is seen in the lumen of the common femoral, femoral, popliteal, and posterior tibial veins. There is a normal response of the venous system to proximal and distal augmentation an d respiration. CONCLUSION: Subcutaneous edema without venous thrombosis. Yahir Bailey MD FACR on July 25, 2017 at 9:08 Board Certified Radiologist. This report was verified electronically.
--- NOTE | 2017-07-25 09:17 | RADRPT ---
EXAM DATE/TIME: 07/25/2017 08:14 [facility] COMPARISON: US KIDNEY/RENAL/BLADDER, November 13, 2013, 12:06. INDICATIONS : Increased BUN/creatinine. MEDICAL HISTORY : Hyperthyroidism. Myocardial infarction. Congestive heart failure. Mild nonproliferative diabetic reti nopathy/polyneuropathy. CVA. Confusion. Coronary artery disease. Hypercholesterolemia. Afib. Asthma. HTN. Sleep apnea. Dyspnea. Dysphagia. Renal failure. Diabetes. Arthritis. Hemiplegia. Depression. Ant icoagulant therapy. MRSA. SURGICAL HISTORY : CABG. Pacemaker. Gastric bypass. Prosthetic penis. Left BKA. PEG tube. ENCOUNTER: Initial ACUITY: 1 day PAIN SCORE: 0/10 LOCATION: Bilateral flank MEASUREMENTS: RIGHT KIDNEY: 13.0 x 6.1 x 6.4 cm LEFT KIDNEY: Nonvisualized FINDINGS: RIGHT KIDNEY: Renal cortex is normal in thickness and echotexture. No hydronephrosis, stone, or mass. LEFT KIDNEY: Nonvisualized. BLADDER: Within normal limits given the degree of distension. CONCLUSION: Unremarkable right kidney and urinary bladder. Nonvisualized left kidney. Sukumar Kitchen MD on July 25, 2017 at 9:15 Board Certified Radiologist. This report was verified electronically.
[2017-07-25] MEDS: DOCUSATE SODIUM 50 MG/SENNA 8.6 MG TAB PO SCH ×2 (09:18→20:25)
[2017-07-25] MEDS: PANTOPRAZOLE SOD 40 MG DELAYED RELEASE TAB PO SCH (09:18)
[2017-07-25] MEDS: ISOSORBIDE MONONITRATE 60 MG TAB PO SCH (09:19)
[2017-07-25] MEDS: CITALOPRAM HYDROBROMIDE 20 MG TAB PO SCH (09:19)
[2017-07-25] MEDS: ATORVASTATIN 80 MG TAB PO SCH (09:19)
[2017-07-25] MEDS: MORPHINE SULFATE 4 MG/ML INJ IV PUSH PRN ×2 (09:30→20:26)
[2017-07-25] MEDS: ARTIFICIAL TEARS OPTH SOLN 15 ML BTL EACH EYE SCH ×3 (09:45→17:04)
[2017-07-25] MEDS ORDERED: HYDROCORTISONE SOD SUCCINATE 100 MG VIAL ONE (10:43)
--- NOTE | 2017-07-25 10:43 | HHI.CCPN ---
Subjective Remarks/Hospital Course Patient is a 51-year-old male redo of admission 07/24/2017. Past medical history includes coronary disease three-vessel status post CABG 2014, , arthritis, asthma, paroxysmal A. fib on Xarelto, depression, cardiomyopathy status post BIV -AICD by Dr. Valdivia removed secondary to sepsis, hyperlipidemia, CVA with residual left-sided weakness, coronary artery disease status post AR on aspirin, diabetes mellitus with retinopathy, neuropathy and neuropathy, hypertension, DIXIE and chronic kidney disease stage IV followed by Dr. Quintana. This gentleman presented to [facility] complaining of low blood sugar. He takes glipizide for his diabetes, and his last dose was at 9 PM last night. He says he was feeling fine, but earlier this morning had an episode of low blood sugar is baseline creatinines around 2.7. Is currently 4.95.. The fire department came and found her sugar to be 20, he was given dextrose and return to baseline so he was transported to the hospital. This happened again this evening and EMS arrived and again gave him dextrose. This time he is transported to the hospital. He currently has no complaints. He has residual left-sided weakness as well as confusion from his previous strokes. He denies chest pain, shortness of breath, fevers, abdominal pain, nausea or vomiting. He does say that he ate a turkey sandwich today. Patient has been started on D10 drip. TSH, cortisol and infectious workup is currently pending. LFTs within normal limits. He was given 50 g octreotide 1 for sulfonurea use. Acute kidney injury. 07/25/17: Blood sugar 119 today after breakfast. patient remains on D10 at 75 ml per hour. Appears comfortable no acute distress. Cortisol level is 10, relatively low in the setting of hypoglycemia. Will start stress dose steroids Objective Vital Signs Date Time Temp Pulse Resp B/P (MAP) Pulse Ox O2 Delivery O2 Flow Rate FiO2 07/25/17 08:49 95 07/25/17 06:00 71 07/25/17 03:47 98.4 16 223/102 (142) 07/25/17 03:00 Room Air Intake and Output 07/25/17 07/25/17 07/26/17 08:00 16:00 00:00 Output Total 850 ml Balance -850 ml Result Diagram: 07/25/17 0247 07/25/17 0247 Imaging Last Impressions Head CT 07/24/17 0000 Signed Impressions: Service Date/Time: Monday, July 24, 2017 21:12 - CONCLUSION: Exam no acute intracranial abnormality. Old left MCA distribution infarct. Mark Jett MD Chest X-Ray 07/24/17 0000 Signed Impressions: Service Date/Time: Monday, July 24, 2017 19:43 - CONCLUSION: Mild to moderate stable, compensated cardiomegaly. No acute cardiopulmonary disease demonstrated. Mark Jett MD Objective Remarks GENERAL: 52-year-old male, very pleasant currently resting in bed in no acute distress SKIN: Warm and dry. Chronic venous stasis right lower extremity. Left lower extremity stump without ulceration HEAD: Atraumatic. Normocephalic. EYES: Pupils equal and round about 2 mm bilaterally and reactive. No scleral icterus. No injection or drainage. ENT: No nasal bleeding or discharge. Mucous membranes pink and moist. NECK: Trachea midline. No JVD. CARDIOVASCULAR: Regular rate and rhythm. S1, S2 no S4. Without murmur RESPIRATORY: Clear to auscultation. Breath sounds equal bilaterally. GASTROINTESTINAL: Abdomen soft, non-tender, nondistended. Hypoactive bowel sounds appreciated MUSCULOSKELETAL: Extremities with 2+ right lower extremity peripheral edema. History of left below-knee amputation. NEUROLOGICAL: Awake and alert. No obvious cranial nerve deficits. Motor grossly within normal limits. A/P Assessment and Plan Neuro/Psych: Diabetic neuropathy History of left MCA stroke CT brain 07/24 revealed no acute intracranial pain. Old left MCA stroke distribution. Acetaminophen for fever [place]/morphine for pain management Continue Citalopram 20 mg daily and bupropion 150 mg by mouth daily for depression CV: Dilated cardiopathy Dyslipidemia Hypertension Coronary disease status post CABG 3 - Dr. Stein History of paroxysmal atrial fibrillation Patient is currently on metoprolol 50 mg daily, isosorbide mononitrate 120 mg daily, lisinopril 20 mg daily for hypertension. Holding lisinopril secondary to acute kidney injury Intermittently on Bumetanide. Denies any chest pain or shortness of breath currently. Continue rosuvastatin 40 mg by mouth daily for dyslipidemia Resp: History of DIXIE History of asthma NC to maintain saturations greater than equal to 92% Incentive spirometry while awake GI: Gastroesophageal reflux disease Hypoalbuminemia ADA diet Pantoprazole for GI prophylaxis. On omeprazole 20 mg by mouth daily at home Docusate sodium/senna 1 tablet twice a day for bowel regimen : No indication for Jensen catheter Endo: Hypoglycemia Relative adrenal insufficiency Diabetes mellitus with retinopathy, nephropathy and neuropathy History of thyroid storm per patient Holding glyburide 5 mill grams by mouth twice a day. No SSI Early on D10 at 75 cc an hour. Accu-Cheks every hour's. Received octreotide 50 g subcutaneous 3 times a day Cortisol level 10, which is low in the setting of hypoglycemia Start stress dose steroids hydrocortisone 100 mg IV q8 Renal: Acute on chronic kidney injury stage IV to [address] Quintana F/U renal ultrasound and urine electrolytes/eosinophils Avoid nephrotoxic drugs. Lisinopril held Heme: Normocytic anemia Chronic rivaroxaban use Holding Rivaroxaban in light of acute kidney injury. Monitor CBC daily. Follow trends. No indications for transfusion of blood process at this time. ID: Monitor for infection Blood cultures drawn Msk: History of left below-knee amputation Physical therapy evaluate and treat FEN: Replacing electrolytes as clinically indicated Access - Utilize peripheral IV. Central line if indicated Prophylaxis - GI - Protonix - DVT - SCD/Rivaroxaban on hold in light of acute kidney injury Level II Continue ICU care until hyperglycemia resolved. Consult [facility] to assume care in am Neetu Flores MD Jul 25, 2017 10:43
[2017-07-25] MEDS: SODIUM BICARBONATE 650 MG TAB PO SCH ×2 (11:13→20:25)
[2017-07-25] MEDS: buPROPion HCL 150 MG EXTENDED RELEASE TAB PO SCH (12:17)
[2017-07-25] MEDS: CALCIUM ACETATE 667 MG CAP PO SCH ×2 (12:17→17:04)
--- NOTE | 2017-07-25 15:29 | MB ---
cc: ISH MCCARTY MD DATE OF CONSULTATION: 07/25/2017 REASON FOR CONSULTATION: Chronic kidney disease for evaluation. HISTORY OF PRESENT ILLNESS This is a 52-year-old male known to me from before with past medical history of hypertension, diabetes mellitus, morbid obesity, sleep apnea, bronchial asthma, hyperlipidemia, atrial fibrillation, history of CVA. The patient came to the hospital because of recurrent hypoglycemia. I was called to see the patient because of elevated BUN and creatinine. The patient has known history of chronic kidney disease. He has been following with me in the office and the last time I saw him, his creatinine was around 2.7 which is probably his baseline and now he came in with a creatinine of 4.9. The patient has low blood sugar going on for a few days before he came to the hospital. He denies any nausea or vomiting. His appetite has been normal. He does not have any dysuria, hematuria or difficulty passing urine. He did not notice any decrease in the urine output. There is no history of vomiting, no history of diarrhea. He did notice that he has more swelling in the right leg. He has left leg amputation. PAST MEDICAL HISTORY Hypertension, diabetes mellitus, bronchial asthma, sleep apnea, hyperlipidemia, atrial fibrillation, chronic kidney disease, anxiety/depression. PAST SURGICAL HISTORY Left below-knee amputation, coronary artery bypass grafting in 2014. AICD placement and removal. ALLERGIES NAPROXEN MEDICATIONS Currently he is on the following medications: 1. Dextrose saline at 75 an hour. 2. Karen-Colace one tablet b.i.d. 3. Protonix 40 mg once a day. 4. Bupropion 150 milligrams daily. 5. Celexa 20 mg once a day. 6. Imdur 120 mg daily. 7. Lopressor 50 mg once a day. 8. Lipitor 80 mg daily. 9. DuoNeb nebulizer. 10. Hydralazine 10 mg p.r.n. PHYSICAL EXAMINATION: On examination the patient is awake, alert. He is sitting in the bed not in acute distress. His last blood pressure is 198/100. Temperature 98.4, oxygen saturation 95-96%. HEENT: Pupils are mid constricted. Nonicteric sclera, conjunctiva pale. Neck: Supple. JVD is not elevated. Lungs: The patient has bilateral good air entry with occasional wheezing and few basilar rales. Heart: S1-S2 regular. Abdomen: Distended, soft lax. There is no tenderness. Bowel sounds positive. Extremities: The right leg, he has 2+ edema. INVESTIGATIONS: WBC count is 8.3, hemoglobin 9.9, platelet count of 221, neutrophils 75.5, sodium 139. Potassium 5.4, chloride 110, bicarb 19.2, BUN 59, creatinine 4.8, glucose 155. Calcium corrected is 7.8, phosphorus is 5.8, AST is 9, ALT 8, total protein is 5.5 with albumin of 1.8. INR is 1.1. Urinalysis showing protein of 300. Blood cultures pending. IMAGING STUDIES: The patient has ultrasound of the lower extremities done which shows subcutaneous edema without any venous thrombosis. Ultrasound of the kidneys are done which showed the right kidney is 13 cm. The left is not visualized. CT scan of the brain was done without IV contrast and shows no acute abnormality, old MCA infarct. ASSESSMENT/PLAN: 1. Chronic kidney disease with acute kidney injury. 2. Diabetic with recurrent hypoglycemia. 3. Hypertension uncontrolled. 4. Gastroesophageal reflux disease. 5. History of ischemic heart disease The patient has underlying chronic kidney disease most likely because of diabetic nephropathy and he has a single kidney. His baseline GFR was close to 25 and now it has gone down to 12-13. He has been nonoliguric, potassium increased slightly to 5.4. He is getting IV fluid. I will give him oral sodium bicarbonate and also put him on PhosLo. I did discuss with the patient about the possibility of dialysis if the renal function does not improve. He seems to understand that. PhosLo for high phosphorus. Will follow the urine output and BMP. Avoid any nephrotoxins. Thank you for the consultation. I will follow the patient while he is in the hospital. MD NANY Stroud/EARL /10:12 AM /2:53 PM
[2017-07-25] MEDS: ACETAMINOPHEN/HYDROcodone 325 MG/5 MG TAB PO PRN (15:33)
[2017-07-25] MEDS: SODIUM CHLORIDE 23.4% INJ 154 MEQ in DEXTROSE 10% INJ 1,000 ML IV SCH (15:49)
[2017-07-25] MEDS: DEXTROSE 5% IN WATE 1000ML INJ 1,000 ML IV SCH (16:00)
[2017-07-25] MEDS ORDERED: cloNIDine HCL 0.2 MG TAB PO ONE (16:30)
[2017-07-25] MEDS: LABETALOL HCL 100 MG/20 ML VIAL IV PUSH PRN ×2 (17:05→22:45)
[2017-07-25] MEDS ORDERED: HYDROCORTISONE SOD SUCCINATE 100 MG VIAL IV SCH (18:00)
[2017-07-25] MEDS: METOPROLOL TARTRATE 50 MG TAB PO SCH (20:25)
--- NOTE | 2017-07-25 21:35 | EKG ---
Date Performed: 07/24/2017 Time Performed: 19:57:05 PTAGE: 52 years EKG: Sinus rhythm WITH FIRST DEGREE AV BLOCK INFERIOR MYOCARDIAL INFARCTION MODERATE T-WAVE ABNORMALITY ABNORMAL ECG PREVIOUS TRACING : 02/18/2017 12.44 Compared to the previous tracing no ectopy present DOCTOR: Kaya Perla Interpretating Date/Time 07/25/2017 21:34:51
[2017-07-25] MEDS ORDERED: DEXTROSE 50% IN WATER 50 ML VIAL(D50) IV PRN (22:00)
[2017-07-25] MEDS ORDERED: GLUCAGON 1 MG/ML VIAL OTHER PRN (22:00)
[2017-07-26] VITALS (37 sets, daily range): BP systolic 122–213; BP diastolic 59–99; PULSE 51–66; RESP 16–28; TEMP 97.9–98.3; O2SAT 94–100
[2017-07-26] MEDS: cloNIDine HCL 0.2 MG TAB PO SCH ×3 (00:45→18:01)
[2017-07-26] MEDS: hydrALAZINE HCL 20 MG/ML VIAL IV PUSH PRN ×3 (00:45→21:38)
[2017-07-26] MEDS: MORPHINE SULFATE 4 MG/ML INJ IV PUSH PRN ×5 (00:46→20:24)
[2017-07-26] MEDS: INSULIN ASPART SUPPLEMENTAL SCALE SQ SCH ×5 (03:02→20:25)
[2017-07-26] MEDS: RESP: ALBUTEROL 2.5 MG/IPRATROPIUM 0.5 MG NEB (SCH) INH ×6 (04:00→20:00)
[2017-07-26] MEDS: CHLORHEXIDINE GLUCONATE 2 % 1 PACK (2 CLOTHS) TOP SCH (04:00)
[2017-07-26] MEDS: LABETALOL HCL 100 MG/20 ML VIAL IV PUSH PRN ×2 (04:39→21:02)
[2017-07-26] MEDS: OCTREOTIDE INJ 50 MCG/ML AMP SQ SCH ×2 (06:00→14:00)
[2017-07-26 06:08] LABS: AUTOMATED NEUTROPHIL # 5.1 TH/MM3 (1.8-7.7); BASOPHIL % 0.5 % (0.0-2.0); EOSINOPHIL # 0.2 TH/MM3 (0-0.4); EOSINOPHIL % 2.8 % (0.0-4.0); HEMATOCRIT 29.3 % (39.0-51.0); HEMO FLAGS DIFF FINAL; LYMPH % 20.4 % (9.0-44.0); LYMPHOCYTE # 1.5 TH/MM3 (1.0-4.8); MEAN CORPUSCULAR HEMOGLOBIN 29.8 PG (27.0-34.0); MEAN CORPUSCULAR HGB CONC 32.4 % (32.0-36.0); MONO % 7.2 % (0.0-8.0); NEUT % 69.1 % (16.0-70.0); PLATELET COUNT 181 TH/MM3 (150-450); RED BLOOD COUNT 3.19 MIL/MM3 (4.50-5.90); RED CELL DISTRIBUTION WIDTH 15.7 % (11.6-17.2); WHITE BLOOD COUNT 7.3 TH/MM3 (4.0-11.0)
[2017-07-26 06:20] LABS: ANION GAP 7 MEQ/L (5-15); AST (GOT) 10 U/L (15-37); BICARBONATE 19.5 MEQ/L (21.0-32.0); BLOOD UREA NITROGEN 59 MG/DL (7-18); CHLORIDE 110 MEQ/L (98-107); GLOMERULAR FILTRATION RATE 12 ML/MIN (>89); SODIUM (NA) 136 MEQ/L (136-145)
[2017-07-26 06:21] LABS: ALT (GPT) 9 U/L (12-78)
[2017-07-26 06:23] LABS: ALKALINE PHOSPHATASE 62 U/L (45-117); TOTAL BILIRUBIN ADULT 0.3 MG/DL (0.2-1.0)
[2017-07-26] MEDS: DEXTROSE 5% IN WATE 1000ML INJ 1,000 ML IV SCH (08:19)
[2017-07-26] MEDS: SODIUM CHLORIDE 0.9% FLUSH 10 ML FLUSH IV FLUSH SCH ×2 (08:19→20:24)
[2017-07-26] MEDS: ARTIFICIAL TEARS OPTH SOLN 15 ML BTL EACH EYE SCH ×3 (08:19→18:01)
[2017-07-26] MEDS: CALCIUM ACETATE 667 MG CAP PO SCH ×3 (08:20→18:01)
[2017-07-26] MEDS: METOPROLOL TARTRATE 50 MG TAB PO SCH ×2 (08:20→20:24)
[2017-07-26] MEDS: ISOSORBIDE MONONITRATE 60 MG TAB PO SCH (08:20)
[2017-07-26] MEDS: buPROPion HCL 150 MG EXTENDED RELEASE TAB PO SCH (08:20)
[2017-07-26] MEDS: ATORVASTATIN 80 MG TAB PO SCH (08:20)
[2017-07-26] MEDS: DOCUSATE SODIUM 50 MG/SENNA 8.6 MG TAB PO SCH ×2 (08:20→20:24)
[2017-07-26] MEDS: PANTOPRAZOLE SOD 40 MG DELAYED RELEASE TAB PO SCH (08:21)
[2017-07-26] MEDS: SODIUM BICARBONATE 650 MG TAB PO SCH ×2 (08:21→20:24)
[2017-07-26] MEDS: CITALOPRAM HYDROBROMIDE 20 MG TAB PO SCH (08:21)
--- NOTE | 2017-07-26 11:09 | HHI.PR ---
Subjective Remarks Follow-up hypoglycemia, acute on chronic kidney disease. The patient states that he feels good today. He is requesting physical therapy and occupational therapy. Denies chest pain, dyspnea, nausea, vomiting. Objective Vitals Vital Signs Date Time Temp Pulse Resp B/P (MAP) Pulse Ox O2 Delivery O2 Flow Rate FiO2 07/26/17 10:30 56 22 135/70 (91) 94 07/26/17 10:15 56 22 135/65 (88) 94 07/26/17 10:00 57 26 135/65 (88) 94 07/26/17 09:45 58 26 127/59 (81) 95 07/26/17 09:30 59 20 122/61 (81) 94 07/26/17 09:15 60 22 139/61 (87) 96 07/26/17 09:00 59 16 164/76 (105) 96 07/26/17 08:55 59 19 179/79 (112) 96 07/26/17 08:45 61 20 204/96 (132) 96 07/26/17 08:30 61 21 198/92 (127) 96 07/26/17 08:18 97 21 07/26/17 08:15 60 25 171/77 (108) 96 07/26/17 08:00 98.3 07/26/17 08:00 59 24 183/85 (117) 94 07/26/17 08:00 60 07/26/17 06:00 60 07/26/17 04:50 16 07/26/17 04:00 98.3 62 27 164/77 (106) 96 07/26/17 04:00 62 07/26/17 02:00 64 07/26/17 00:00 66 07/26/17 00:00 98.3 66 28 191/91 (124) 95 07/25/17 22:00 67 07/25/17 20:02 96 07/25/17 20:00 98.1 71 36 187/85 (119) 95 07/25/17 20:00 71 07/25/17 18:00 79 07/25/17 16:33 14 07/25/17 16:03 71 07/25/17 16:00 98.3 71 20 200/88 (125) 95 07/25/17 14:00 66 07/25/17 12:00 66 07/25/17 12:00 98.5 66 31 192/85 (120) 93 I/O 07/25/17 07/25/17 07/25/17 07/26/17 07/26/17 07/26/17 07:00 15:00 23:00 07:00 15:00 23:00 Intake Total 2635 ml 720 ml Output Total 850 ml 1225 ml 450 ml Balance -850 ml 1410 ml 270 ml Intake Oral 960 ml 720 ml IV Total 1675 ml Output Urine Total 850 ml 1225 ml 450 ml Result Diagram: 07/26/17 0527 07/26/17 0527 Imaging Last Impressions Renal Ultrasound 07/25/17 0000 Signed Impressions: Service Date/Time: Tuesday, July 25, 2017 08:14 - CONCLUSION: Unremarkable right kidney and urinary bladder. Nonvisualized left kidney. Sukumar Kitchen MD Lower Extremity Ultrasound 07/25/17 0000 Signed Impressions: Service Date/Time: Tuesday, July 25, 2017 08:06 - CONCLUSION: Subcutaneous edema without venous thrombosis. Yahir Bailey MD FACR Head CT 07/24/17 0000 Signed Impressions: Service Date/Time: Monday, July 24, 2017 21:12 - CONCLUSION: Exam no acute intracranial abnormality. Old left MCA distribution infarct. Mark Jett MD Chest X-Ray 07/24/17 0000 Signed Impressions: Service Date/Time: Monday, July 24, 2017 19:43 - CONCLUSION: Mild to moderate stable, compensated cardiomegaly. No acute cardiopulmonary disease demonstrated. Mark Jett MD Objective Remarks General: No acute distress. Heart: Regular rate and rhythm. No murmur. Lungs: Clear to auscultation bilaterally. No wheezes, rales, or rhonchi. Breathing is nonlabored. Abdomen: Soft, nontender, nondistended. Extremities: No right lower extremity edema. Left below-knee amputation. Psych: Alert and oriented. Procedures None Urinary Catheter: No Vascular Central Line Catheter: No A/P Problem List: (1) Hypoglycemia ICD Code: E16.2 - Hypoglycemia, unspecified (2) Gastroesophageal reflux disease ICD Code: K21.9 - Gastro-esophageal reflux disease without esophagitis (3) Hypoalbuminemia ICD Code: E88.09 - Other disorders of plasma-protein metabolism, not elsewhere classified (4) Normocytic anemia ICD Code: D64.9 - Anemia, unspecified (5) Severe uncontrolled hypertension ICD Code: I10 - Severe uncontrolled hypertension Status: Acute (6) Hypertension ICD Code: I10 - Hypertension Status: Acute (7) Ischemic cardiomyopathy ICD Code: I25.5 - Ischemic cardiomyopathy Status: Acute (8) DM (diabetes mellitus), type 2, uncontrolled ICD Code: E11.9 - DM (diabetes mellitus), type 2, uncontrolled Status: Acute (9) Acute worsening of stage 4 chronic kidney disease ICD Code: N18.4 - Chronic kidney disease, stage 4 (severe); N28.9 - Acute worsening of stage 4 chronic kidney disease Status: Acute Assessment and Plan 1. Hypoglycemia, relative adrenal insufficiency: Continue dextrose and IV fluids. Currently on D5. Glyburide on hold. Continue stress dose steroids IV. 2. Acute on chronic kidney disease stage IV: Appreciate nephrology recommendations. Creatinine remains elevated. Monitor labs. Avoid nephrotoxins. 3. History of stroke, left MCA: PT/OT. 4. Dilated cardiomyopathy, coronary artery disease: Continue metoprolol, isosorbide mononitrate, statin. 5. Hypertension: Lisinopril on hold secondary to renal failure. 6. Diabetes mellitus with neuropathy: Continue pain control. 7. Depression: Continue citalopram, Wellbutrin. 8. GERD: PPI. 9. Normocytic anemia: Stable. Monitor H&H. 10. DVT prophylaxis: SCDs. Xarelto on hold secondary to acute kidney injury. Problem Qualifiers (1) Gastroesophageal reflux disease: Qualified Codes: K21.9 - Gastro-esophageal reflux disease without esophagitis (2) Hypertension: Qualified Codes: I10 - Essential (primary) hypertension (3) DM (diabetes mellitus), type 2, uncontrolled: Qualified Codes: E11.59 - Type 2 diabetes mellitus with other circulatory complications; E11.65 - Type 2 diabetes mellitus with hyperglycemia; Z79.4 - nursing home (current) use of insulin Mino King MD Jul 26, 2017 11:08
--- NOTE | 2017-07-26 16:32 | HHI.NPPN ---
Subjective History of Present Illness 52-year-old male known to me from before with past medical history of hypertension, diabetes mellitus, morbid obesity, sleep apnea, bronchial asthma, hyperlipidemia, atrial fibrillation, history of CVA. The patient came to the hospital because of recurrent hypoglycemia. I was called to see the patient because of elevated BUN and creatinine. The patient has known history of chronic kidney disease. He has been following with me in the office and the last time I saw him, his creatinine was around 2.7 which is probably his baseline and now he came in with a creatinine of 4.9. Additional Remarks Patient is feeling better, no SOB and swelling in the leg is better. Review of Systems General Constitutional: Fatigue Respiratory Lungs: SOB, Wheeze Cardiovascular Cardiac: Edema, SANCHEZ Objective Data Data Vital Signs Date Time Temp Pulse Resp B/P (MAP) Pulse Ox O2 Delivery O2 Flow Rate FiO2 07/26/17 15:00 56 07/26/17 14:57 57 07/26/17 14:20 57 07/26/17 14:00 58 07/26/17 12:00 53 07/26/17 12:00 53 23 181/81 (114) 95 07/26/17 12:00 98.3 07/26/17 11:45 53 07/26/17 11:30 54 07/26/17 11:15 54 07/26/17 11:00 55 07/26/17 10:46 55 07/26/17 10:30 56 22 135/70 (91) 94 07/26/17 10:30 56 07/26/17 10:15 56 22 135/65 (88) 94 07/26/17 10:15 56 07/26/17 10:00 57 26 135/65 (88) 94 07/26/17 10:00 57 07/26/17 09:45 58 26 127/59 (81) 95 07/26/17 09:30 59 20 122/61 (81) 94 07/26/17 09:15 60 22 139/61 (87) 96 07/26/17 09:00 59 16 164/76 (105) 96 07/26/17 08:55 59 19 179/79 (112) 96 07/26/17 08:45 61 20 204/96 (132) 96 07/26/17 08:30 61 21 198/92 (127) 96 07/26/17 08:18 97 21 07/26/17 08:15 60 25 171/77 (108) 96 07/26/17 08:00 98.3 07/26/17 08:00 59 24 183/85 (117) 94 07/26/17 08:00 60 07/26/17 06:00 60 07/26/17 04:50 16 07/26/17 04:00 98.3 62 27 164/77 (106) 96 07/26/17 04:00 62 07/26/17 02:00 64 07/26/17 00:00 66 07/26/17 00:00 98.3 66 28 191/91 (124) 95 07/25/17 22:00 67 07/25/17 20:02 96 07/25/17 20:00 98.1 71 36 187/85 (119) 95 07/25/17 20:00 71 07/25/17 18:00 79 07/25/17 16:33 14 -: 07/26/17 0527 07/26/17 0527 Physical Exam General Appearance: No Acute Distress, Comfortable Eyes Eye Exam: Pupils Equal Throat Throat Exam: Oral Mucosa [place] & Moist Neck Neck Exam: Neck Supple Pulmonary Resp Exam: Breath Sounds Equal, Rhonchi, Decreased Bases, Diminished Breath Sounds Cardiology CV Exam: Regular Gastrointestinal/Abdomen GI Exam: Soft, Non-Tender, Bowel Sounds Present Extremeties Extremities Exam: Moderate Edema Neurologic Neuro Exam: Alert, Awake, Oriented Psychiatric Psych Exam: Appropriate Responses Assessment/Plan Assessment Summary: NICOLAS/Acute Renal Failure, Fluid/Volume Overload, CKD Stage IV Electrolyte Assessment: Metabolic Acidosis Problem List: (1) HTN (hypertension) ICD Codes: I10 - HTN (hypertension) Status: Chronic (2) DM (diabetes mellitus) ICD Codes: E11.9 - DM (diabetes mellitus) Status: Chronic (3) Anemia ICD Codes: D64.9 - Anemia Status: Acute (4) Edema ICD Codes: R60.9 - Edema, unspecified Status: Acute (5) Acute worsening of stage 4 chronic kidney disease ICD Codes: N18.4 - Chronic kidney disease, stage 4 (severe); N28.9 - Acute worsening of stage 4 chronic kidney disease Status: Acute (6) Acute kidney injury ICD Codes: N17.9 - Acute kidney injury Status: Acute Plan Patient has advance stage 4 chronic kidney disease. Now develop also NICOLAS. Creatinine is almost same. Diuretics on hold. Control the BP. Added NaHco3 for acidosis. Follow the urine out put and the BMP. Problem Qualifiers (1) HTN (hypertension): Qualified Codes: I10 - Essential (primary) hypertension Judy Quintana MD Jul 26, 2017 16:32
[2017-07-27] VITALS (9 sets, daily range): BP systolic 144–187; BP diastolic 65–84; PULSE 55–58; RESP 18–22; TEMP 97.9–98; O2SAT 95–98
[2017-07-27] MEDS: cloNIDine HCL 0.2 MG TAB PO SCH ×3 (01:00→17:36)
[2017-07-27] MEDS: MORPHINE SULFATE 4 MG/ML INJ IV PUSH PRN ×3 (01:15→21:14)
[2017-07-27] MEDS: INSULIN ASPART SUPPLEMENTAL SCALE SQ SCH ×5 (03:00→21:00)
[2017-07-27] MEDS: RESP: ALBUTEROL 2.5 MG/IPRATROPIUM 0.5 MG NEB (SCH) INH ×6 (03:44→20:57)
[2017-07-27] MEDS: CHLORHEXIDINE GLUCONATE 2 % 1 PACK (2 CLOTHS) TOP SCH (04:00)
[2017-07-27] MEDS: hydrALAZINE HCL 20 MG/ML VIAL IV PUSH PRN ×2 (06:24→20:59)
[2017-07-27 06:34] LABS: AUTOMATED NEUTROPHIL # 4.7 TH/MM3 (1.8-7.7); BASOPHIL % 0.6 % (0.0-2.0); EOSINOPHIL # 0.4 TH/MM3 (0-0.4); EOSINOPHIL % 6.1 % (0.0-4.0); HEMATOCRIT 28.7 % (39.0-51.0); HEMO FLAGS DIFF FINAL; LYMPH % 19.2 % (9.0-44.0); LYMPHOCYTE # 1.3 TH/MM3 (1.0-4.8); MEAN CELL VOLUME 90.8 FL (80.0-100.0); MEAN CORPUSCULAR HEMOGLOBIN 29.3 PG (27.0-34.0); MEAN CORPUSCULAR HGB CONC 32.2 % (32.0-36.0); MONO % 6.5 % (0.0-8.0); NEUT % 67.6 % (16.0-70.0); PLATELET COUNT 195 TH/MM3 (150-450); RED BLOOD COUNT 3.16 MIL/MM3 (4.50-5.90); RED CELL DISTRIBUTION WIDTH 15.2 % (11.6-17.2); WHITE BLOOD COUNT 6.9 TH/MM3 (4.0-11.0)
[2017-07-27 07:02] LABS: BICARBONATE 20.6 MEQ/L (21.0-32.0); POTASSIUM 5.3 MEQ/L (3.5-5.1)
[2017-07-27] MEDS: SODIUM BICARBONATE 650 MG TAB PO SCH ×2 (09:02→20:59)
[2017-07-27] MEDS: ATORVASTATIN 80 MG TAB PO SCH (09:02)
[2017-07-27] MEDS: PANTOPRAZOLE SOD 40 MG DELAYED RELEASE TAB PO SCH (09:02)
[2017-07-27] MEDS: DOCUSATE SODIUM 50 MG/SENNA 8.6 MG TAB PO SCH ×2 (09:02→20:59)
[2017-07-27] MEDS: CITALOPRAM HYDROBROMIDE 20 MG TAB PO SCH (09:02)
[2017-07-27] MEDS: ARTIFICIAL TEARS OPTH SOLN 15 ML BTL EACH EYE SCH ×3 (09:02→17:36)
[2017-07-27] MEDS: ACETAMINOPHEN/HYDROcodone 325 MG/5 MG TAB PO PRN ×3 (09:03→23:40)
[2017-07-27] MEDS: buPROPion HCL 150 MG EXTENDED RELEASE TAB PO SCH (09:03)
[2017-07-27] MEDS: ISOSORBIDE MONONITRATE 60 MG TAB PO SCH (09:03)
[2017-07-27] MEDS: METOPROLOL TARTRATE 50 MG TAB PO SCH ×2 (09:03→20:59)
[2017-07-27] MEDS: CALCIUM ACETATE 667 MG CAP PO SCH ×3 (09:03→17:36)
[2017-07-27] MEDS: SODIUM CHLORIDE 0.9% FLUSH 10 ML FLUSH IV FLUSH SCH ×2 (09:06→23:40)
--- NOTE | 2017-07-27 11:35 | HHI.PR ---
Subjective Remarks Follow up hypoglycemia, renal failure. Patient reports pain in his right foot, chronic/unchanged. No chest pain or dyspnea. No nausea/vomiting. Objective Vitals Vital Signs Date Time Temp Pulse Resp B/P (MAP) Pulse Ox O2 Delivery O2 Flow Rate FiO2 07/27/17 09:19 95 07/27/17 06:40 57 144/65 (91) 07/27/17 06:00 57 187/84 (118) 07/27/17 06:00 57 07/27/17 04:00 55 07/27/17 04:00 98.0 55 18 170/78 (108) 97 07/27/17 02:00 55 07/27/17 00:00 97.9 55 22 171/82 (111) 98 07/27/17 00:00 55 07/26/17 22:00 56 07/26/17 21:50 55 165/93 (117) 07/26/17 21:43 96 07/26/17 21:40 56 213/99 (137) 07/26/17 21:00 54 200/95 (130) 07/26/17 20:00 98.0 51 22 194/81 (118) 96 07/26/17 20:00 51 07/26/17 19:00 52 07/26/17 18:00 54 07/26/17 17:00 54 07/26/17 17:00 54 18 100 07/26/17 16:00 53 16 97 07/26/17 16:00 53 07/26/17 16:00 97.9 07/26/17 15:00 56 07/26/17 14:57 57 07/26/17 14:20 57 07/26/17 14:00 58 07/26/17 12:00 53 07/26/17 12:00 53 23 181/81 (114) 95 07/26/17 12:00 98.3 07/26/17 11:45 53 I/O 07/26/17 07/26/17 07/26/17 07/27/17 07/27/17 07/27/17 07:00 15:00 23:00 07:00 15:00 23:00 Intake Total 720 ml 1200 ml 360 ml Output Total 450 ml 750 ml 1800 ml Balance 270 ml 450 ml -1440 ml Intake Oral 720 ml 1200 ml 360 ml Output Urine Total 450 ml 750 ml 1800 ml # Voids 2 # Bowel Movements 0 0 Result Diagram: 07/27/17 0553 07/27/17 0553 Imaging Last Impressions Renal Ultrasound 07/25/17 0000 Signed Impressions: Service Date/Time: Tuesday, July 25, 2017 08:14 - CONCLUSION: Unremarkable right kidney and urinary bladder. Nonvisualized left kidney. Sukumar Kitchen MD Lower Extremity Ultrasound 07/25/17 0000 Signed Impressions: Service Date/Time: Tuesday, July 25, 2017 08:06 - CONCLUSION: Subcutaneous edema without venous thrombosis. Yahir Bailey MD FACR Head CT 07/24/17 0000 Signed Impressions: Service Date/Time: Monday, July 24, 2017 21:12 - CONCLUSION: Exam no acute intracranial abnormality. Old left MCA distribution infarct. Mark Jett MD Chest X-Ray 07/24/17 0000 Signed Impressions: Service Date/Time: Monday, July 24, 2017 19:43 - CONCLUSION: Mild to moderate stable, compensated cardiomegaly. No acute cardiopulmonary disease demonstrated. Mark Jett MD Objective Remarks General: No acute distress. Heart: Regular rate and rhythm. No murmur. Lungs: Clear to auscultation bilaterally. No wheezes, rales, or rhonchi. Breathing is nonlabored. Abdomen: Soft, nontender, nondistended. Extremities: No right lower extremity edema. Left below-knee amputation. Psych: Alert and oriented. Procedures None Urinary Catheter: No Vascular Central Line Catheter: No A/P Problem List: (1) Hypoglycemia ICD Code: E16.2 - Hypoglycemia, unspecified (2) Gastroesophageal reflux disease ICD Code: K21.9 - Gastro-esophageal reflux disease without esophagitis (3) Hypoalbuminemia ICD Code: E88.09 - Other disorders of plasma-protein metabolism, not elsewhere classified (4) Normocytic anemia ICD Code: D64.9 - Anemia, unspecified (5) Severe uncontrolled hypertension ICD Code: I10 - Severe uncontrolled hypertension Status: Acute (6) Hypertension ICD Code: I10 - Hypertension Status: Acute (7) Ischemic cardiomyopathy ICD Code: I25.5 - Ischemic cardiomyopathy Status: Acute (8) DM (diabetes mellitus), type 2, uncontrolled ICD Code: E11.9 - DM (diabetes mellitus), type 2, uncontrolled Status: Acute (9) Acute worsening of stage 4 chronic kidney disease ICD Code: N18.4 - Chronic kidney disease, stage 4 (severe); N28.9 - Acute worsening of stage 4 chronic kidney disease Status: Acute Assessment and Plan 1. Hypoglycemia, relative adrenal insufficiency: Continue dextrose in IV fluids. Currently on D5. Glyburide on hold. Received stress dose steroids IV. 2. Acute on chronic kidney disease stage IV: Appreciate nephrology recommendations. Creatinine remains elevated. Monitor labs. Avoid nephrotoxins. 3. History of stroke, left MCA: PT/OT. 4. Dilated cardiomyopathy, coronary artery disease: Continue metoprolol, isosorbide mononitrate, statin. 5. Hypertension: Lisinopril on hold secondary to renal failure. 6. Diabetes mellitus with neuropathy: Continue pain control. 7. Depression: Continue citalopram, Wellbutrin. 8. GERD: PPI. 9. Normocytic anemia: Stable. Monitor H&H. 10. DVT prophylaxis: SCDs. Xarelto on hold secondary to acute kidney injury. Problem Qualifiers (1) Gastroesophageal reflux disease: Qualified Codes: K21.9 - Gastro-esophageal reflux disease without esophagitis (2) Hypertension: Qualified Codes: I10 - Essential (primary) hypertension (3) DM (diabetes mellitus), type 2, uncontrolled: Qualified Codes: E11.59 - Type 2 diabetes mellitus with other circulatory complications; E11.65 - Type 2 diabetes mellitus with hyperglycemia; Z79.4 - tuberculosis specialist (current) use of insulin Mino King MD Jul 27, 2017 11:35
[2017-07-27] MEDS: DEXTROSE 5% IN WATE 1000ML INJ 1,000 ML IV SCH ×2 (13:00→23:39)
--- NOTE | 2017-07-27 13:22 | HHI.NPPN ---
Subjective History of Present Illness 52 year old with dilated cardiomyopathy,CAD, Diabetes, CKD 4 with ARF Review of Systems General Constitutional: Fatigue Objective Data Data Vital Signs Date Time Temp Pulse Resp B/P (MAP) Pulse Ox O2 Delivery O2 Flow Rate FiO2 07/27/17 09:19 95 07/27/17 06:40 57 144/65 (91) 07/27/17 06:00 57 187/84 (118) 07/27/17 06:00 57 07/27/17 04:00 55 07/27/17 04:00 98.0 55 18 170/78 (108) 97 07/27/17 02:00 55 07/27/17 00:00 97.9 55 22 171/82 (111) 98 07/27/17 00:00 55 07/26/17 22:00 56 07/26/17 21:50 55 165/93 (117) 07/26/17 21:43 96 07/26/17 21:40 56 213/99 (137) 07/26/17 21:00 54 200/95 (130) 07/26/17 20:00 98.0 51 22 194/81 (118) 96 07/26/17 20:00 51 07/26/17 19:00 52 07/26/17 18:00 54 07/26/17 17:00 54 07/26/17 17:00 54 18 100 07/26/17 16:00 53 16 97 07/26/17 16:00 53 07/26/17 16:00 97.9 07/26/17 15:00 56 07/26/17 14:57 57 07/26/17 14:20 57 07/26/17 14:00 58 -: 07/27/17 0553 07/27/17 0553 Physical Exam General Appearance: Well Developed Neck Neck Exam: Neck Supple Pulmonary Resp Exam: Decreased Bases Cardiology CV Exam: Regular Gastrointestinal/Abdomen GI Exam: Soft, Non-Tender, Bowel Sounds Present Extremeties Extremities Exam: Pitting Edema, Dependent Edema Neurologic Neuro Exam: Alert, Awake Assessment/Plan Problem List: (1) Acute kidney injury ICD Codes: N17.9 - Acute kidney injury Status: Acute (2) Acute worsening of stage 4 chronic kidney disease ICD Codes: N18.4 - Chronic kidney disease, stage 4 (severe); N28.9 - Acute worsening of stage 4 chronic kidney disease Status: Acute (3) Ischemic cardiomyopathy ICD Codes: I25.5 - Ischemic cardiomyopathy Status: Acute (4) DM (diabetes mellitus), type 2, uncontrolled ICD Codes: E11.9 - DM (diabetes mellitus), type 2, uncontrolled Status: Acute (5) Severe uncontrolled hypertension ICD Codes: I10 - Severe uncontrolled hypertension Status: Acute (6) Cardiomyopathy ICD Codes: I42.9 - Cardiomyopathy Status: Acute Plan he has advance CKD now with ARF UOP is maintained however, creatinine remains elevated, I will cut back on IVF as has edema give Bumex 1 mg daily Get Echo for LV functions may have Cardiorenal syndrome need better BP control hydralazine 25 mg tid need K restricted Diabetic diet K 5.3 follow BMP Problem Qualifiers (1) DM (diabetes mellitus), type 2, uncontrolled: Qualified Codes: E11.59 - Type 2 diabetes mellitus with other circulatory complications; E11.65 - Type 2 diabetes mellitus with hyperglycemia; Z79.4 - parts counterman (current) use of insulin Homero Arias MD Jul 27, 2017 13:22
[2017-07-27] MEDS: hydrALAZINE HCL 25 MG TAB PO SCH ×2 (13:58→23:40)
[2017-07-27] MEDS: BUMETANIDE INJ 1 MG/4 ML VIAL IV PUSH SCH (14:03)
[2017-07-28] VITALS (8 sets, daily range): BP systolic 160–195; BP diastolic 68–88; PULSE 57–65; RESP 16–18; TEMP 96.1–98.3; O2SAT 94–99
[2017-07-28] MEDS: cloNIDine HCL 0.2 MG TAB PO SCH ×3 (01:52→16:46)
[2017-07-28] MEDS: INSULIN ASPART SUPPLEMENTAL SCALE SQ SCH ×5 (02:54→21:22)
[2017-07-28] MEDS: CHLORHEXIDINE GLUCONATE 2 % 1 PACK (2 CLOTHS) TOP SCH (04:00)
[2017-07-28] MEDS: RESP: ALBUTEROL 2.5 MG/IPRATROPIUM 0.5 MG NEB (SCH) INH ×7 (04:00→23:55)
[2017-07-28] MEDS: hydrALAZINE HCL 25 MG TAB PO SCH (06:21)
[2017-07-28] MEDS: ACETAMINOPHEN/HYDROcodone 325 MG/5 MG TAB PO PRN ×4 (06:21→18:23)
[2017-07-28 06:24] LABS: BICARBONATE 23.2 MEQ/L (21.0-32.0); POTASSIUM 5.1 MEQ/L (3.5-5.1)
[2017-07-28] MEDS: CALCIUM ACETATE 667 MG CAP PO SCH ×3 (09:32→18:23)
[2017-07-28] MEDS: CITALOPRAM HYDROBROMIDE 20 MG TAB PO SCH (09:32)
[2017-07-28] MEDS: SODIUM BICARBONATE 650 MG TAB PO SCH ×2 (09:32→21:12)
[2017-07-28] MEDS: buPROPion HCL 150 MG EXTENDED RELEASE TAB PO SCH (09:32)
[2017-07-28] MEDS: ISOSORBIDE MONONITRATE 60 MG TAB PO SCH (09:32)
[2017-07-28] MEDS: PANTOPRAZOLE SOD 40 MG DELAYED RELEASE TAB PO SCH (09:32)
[2017-07-28] MEDS: BUMETANIDE INJ 1 MG/4 ML VIAL IV PUSH SCH (09:33)
[2017-07-28] MEDS: METOPROLOL TARTRATE 50 MG TAB PO SCH ×2 (09:33→21:13)
[2017-07-28] MEDS: DOCUSATE SODIUM 50 MG/SENNA 8.6 MG TAB PO SCH ×2 (09:33→21:13)
[2017-07-28] MEDS: ATORVASTATIN 80 MG TAB PO SCH (09:33)
[2017-07-28] MEDS: SODIUM CHLORIDE 0.9% FLUSH 10 ML FLUSH IV FLUSH SCH ×2 (09:34→21:00)
[2017-07-28] MEDS: ARTIFICIAL TEARS OPTH SOLN 15 ML BTL EACH EYE SCH ×3 (10:29→18:23)
--- NOTE | 2017-07-28 11:12 | HHI.PR ---
Subjective Remarks in no acute distress. denies pain. had mild nausea earlier which has resolved. Objective Vitals Vital Signs Date Time Temp Pulse Resp B/P (MAP) Pulse Ox O2 Delivery O2 Flow Rate FiO2 07/28/17 09:29 94 07/28/17 08:00 97.5 63 18 179/81 (113) 96 07/28/17 04:00 179/79 (112) 07/28/17 03:11 62 18 160/68 (98) 96 07/28/17 00:22 96.7 57 18 164/72 (102) 98 07/27/17 22:00 58 07/27/17 20:58 98 21 07/27/17 20:00 58 07/27/17 20:00 98.0 58 22 145/67 (93) 97 I/O 07/27/17 07/27/17 07/27/17 07/28/17 07/28/17 07/28/17 07:00 15:00 23:00 07:00 15:00 23:00 Intake Total 360 ml 480 ml 151 ml Output Total 1800 ml 1600 ml 250 ml Balance -1440 ml -1120 ml -99 ml Intake Oral 360 ml 480 ml IV Total 151 ml Output Urine Total 1800 ml 1600 ml 250 ml # Bowel Movements 0 0 Result Diagram: 07/27/17 0553 07/28/17 0504 Imaging Last Impressions Renal Ultrasound 07/25/17 0000 Signed Impressions: Service Date/Time: Tuesday, July 25, 2017 08:14 - CONCLUSION: Unremarkable right kidney and urinary bladder. Nonvisualized left kidney. Sukumar Kitchen MD Lower Extremity Ultrasound 07/25/17 0000 Signed Impressions: Service Date/Time: Tuesday, July 25, 2017 08:06 - CONCLUSION: Subcutaneous edema without venous thrombosis. Yahir Bailey MD FACR Head CT 07/24/17 0000 Signed Impressions: Service Date/Time: Monday, July 24, 2017 21:12 - CONCLUSION: Exam no acute intracranial abnormality. Old left MCA distribution infarct. Mark Jett MD Chest X-Ray 07/24/17 0000 Signed Impressions: Service Date/Time: Monday, July 24, 2017 19:43 - CONCLUSION: Mild to moderate stable, compensated cardiomegaly. No acute cardiopulmonary disease demonstrated. Mark Jett MD Objective Remarks GENERAL: This is a well-nourished, well-developed patient, in no apparent distress. CARDIOVASCULAR: Regular rate and regular rhythm without murmurs, gallops, or rubs. RESPIRATORY: Clear to auscultation. Breath sounds equal bilaterally. No wheezes , rales, or rhonchi. GASTROINTESTINAL: Abdomen soft, non-tender, nondistended. Normal, active bowel sounds MUSCULOSKELETAL: s/p left BKA- mild right leg edema NEURO: Alert & Oriented x4 to person, place, time, situation. Moves all ext x4 Procedures None Medications and IVs Current Medications Dextrose (D50w (Syr) Inj) 25 ml ONCE ONCE IV PUSH Last administered on 19:31; Start 07/24/17 at 19:30; Stop 07/24/17 at 19:31; Status DC Octreotide Acetate (SandoSTATIN INJ) 50 mcg ONCE ONCE SQ Last administered on 07/24/17 21:28; Start 07/24/17 at 21:00; Stop 07/24/17 at 21:02; Status DC Dextrose/Lactated Ringer's 1,000 ml @ 84 mls/hr [id number] IV Last administered on 07/24/17 21:09; Start 07/24/17 at 21:00; Stop 07/25/17 at 00:32; Status DC Metoprolol Succinate (Toprol Xl) 50 mg ONCE ONCE PO Last administered on 21:09; Start 07/24/17 at 21:00; Stop 07/24/17 at 21:02; Status DC Dextrose (D50w (Syr) Inj) 25 ml ONCE ONCE IV PUSH Last administered on 22:05; Start 07/24/17 at 22:00; Stop 07/24/17 at 22:03; Status DC Sodium Chloride 154 meq/Dextrose 1,038.5 ml @ 75 mls/hr [id number] IV Last administered on 07/25/17 15:49; Start 07/24/17 at 22:15; Stop 07/25/17 at 16:00 ; Status DC Hydralazine HCl (Apresoline Inj) 10 mg Q1HR PRN IV PUSH SBP> OR = 180, DBP> OR = 100 Last administered on 07/25/17 15:49; Start 07/24/17 at 22:30; Stop at 16:30; Status DC Nitroglycerin (Nitroglycerin 2% Oint) 2 inch Q6HR PRN TOPICAL SBP> OR = 180, DBP> OR = 100 Last administered on 07/25/17 01:52; Start 07/24/17 at 22:30 Sodium Chloride (NS Flush) 2 ml UNSCH PRN IV FLUSH FLUSH AFTER USING IV ACCESS ; Start 07/24/17 at 22:30 Sodium Chloride (NS Flush) 2 ml BID IV FLUSH Last administered on 07/28/17 09: 34; Start 07/25/17 at 09:00 Acetaminophen (Tylenol) 650 mg Q6H PRN PO FEVER >101F; Start 07/24/17 at 22:30 Acetaminophen/ Hydrocodone Bitart ([place] 5-325 Mg) 1 tab Q4H PRN PO PAIN SCALE 1 TO 5 Last administered on 07/28/17 10:28; Start 07/24/17 at 22:30 Morphine Sulfate (Morphine Inj) 2 mg Q2H PRN IV PUSH PAIN SCALE 6 TO 10 Last administered on 07/27/17 21:14; Start 07/24/17 at 22:30 Pantoprazole Sodium (Protonix) 40 mg DAILY PO Last administered on 07/28/17 09 :32; Start 07/25/17 at 09:00 Artificial Tears (Tears Naturale Opth Soln) 1 drop TID EACH EYE Last administered on 07/28/17 10:29; Start 07/25/17 at 09:00 Ondansetron HCl (Zofran Inj) 4 mg Q6H PRN IV PUSH NAUSEA OR VOMITING Last administered on 07/28/17 10:28; Start 07/24/17 at 22:30 Albuterol/ Ipratropium (Duoneb Neb) 1 ampule Q4HR NEB INH Last administered on 07/28/17 09:28; Start 07/25/17 at 00:00 Albuterol Sulfate (Albuterol Neb) 2.5 mg Q2HR NEB PRN INH SOB/WHEEZING; Start 07/24/17 at 22:30 Miscellaneous Information 1 Q361D XX Last administered on 07/24/17 22:30; Start 07/24/17 at 22:30 Chlorhexidine Gluconate (Chlorhexidine 2% Cloth) 3 pack Taper DAILY@04 TOP Last administered on 07/27/17 04:00; Start 07/25/17 at 04:00; Stop 07/21/18 at 03:59 Chlorhexidine Gluconate (Chlorhexidine 2% Cloth) 3 pack UNSCH PRN TOP HYGIENIC CARE; Start 07/24/17 at 22:30 Senna/Docusate Sodium (Karen-Colace) 1 tab BID PO Last administered on 09:33; Start 07/25/17 at 09:00 Magnesium Hydroxide (Milk Of Magnesia Liq) 30 ml Q12H PRN PO MILD - MODERATE CONSTIPATION; Start 07/24/17 at 22:30 Sennosides (Senokot) 17.2 mg Q12H PRN PO MODERATE - SEVERE CONSTIPATION; Start 07/24/17 at 22:30 Bisacodyl (Dulcolax Supp) 10 mg DAILY PRN RECTAL SEVERE CONSITIPATION; Start at 22:30 Lactulose (Lactulose Liq) 30 ml DAILY PRN PO SEVERE CONSITIPATION; Start at 22:30 Bupropion HCl (Wellbutrin Xl 24 Hr) 150 mg DAILY PO Last administered on 09:32; Start 07/25/17 at 09:00 Citalopram Hydrobromide (CeleXA) 20 mg DAILY PO Last administered on 07/28/17 09:32; Start 07/25/17 at 09:00 Isosorbide Mononitrate (Imdur) 120 mg DAILY PO Last administered on 07/28/17 09:32; Start 07/25/17 at 09:00 Lisinopril (Prinivil) 20 mg DAILY PO ; Start 07/25/17 at 09:00; Stop 07/25/17 at 09:00; Status DC Metoprolol Tartrate (Lopressor) 50 mg DAILY PO Last administered on 07/25/17 09:19; Start 07/25/17 at 09:00; Stop 07/25/17 at 16:27; Status DC Rivaroxaban (Xarelto) 15 mg DAILY PO ; Start 07/25/17 at 09:00; Stop 07/25/17 at 09:00; Status DC Atorvastatin Calcium (Lipitor) 80 mg DAILY PO Last administered on 07/28/17 09 :33; Start 07/25/17 at 09:00 Octreotide Acetate (SandoSTATIN INJ) 50 mcg Q8HR SQ Last administered on 06:00; Start 07/25/17 at 06:00; Stop 07/26/17 at 19:57; Status DC Sodium Bicarbonate (Sodium Bicarbonate) 650 mg Q12HR PO Last administered on 09:32; Start 07/25/17 at 10:30 Calcium Acetate (Phoslo) 667 mg TID PO Last administered on 07/28/17 09:32; Start 07/25/17 at 13:00 Hydrocortisone Sodium Succinate (SoluCORTEF INJ) 100 mg Q8H IV ; Start 07/25/17 at 18:00; Stop 07/25/17 at 18:00; Status DC Hydrocortisone Sodium Succinate (SoluCORTEF INJ) 100 mg STK-MED ONCE .ROUTE Last administered on 07/25/17 10:48; Start 07/25/17 at 10:43; Stop 07/25/17 at 10:44; Status DC Dextrose 1,000 ml @ 30 mls/hr Q24H IV Last administered on 07/27/17 23:39; Start 07/25/17 at 16:00 Metoprolol Tartrate (Lopressor) 50 mg Q12H PO Last administered on 07/28/17 09 :33; Start 07/25/17 at 21:00 Clonidine (Catapres) 0.2 mg ONCE ONCE PO Last administered on 07/25/17 17:04 ; Start 07/25/17 at 16:30; Stop 07/25/17 at 16:51; Status DC Clonidine (Catapres) 0.2 mg Q8H PO Last administered on 07/28/17 09:32; Start 07/26/17 at 01:00 Hydralazine HCl (Apresoline Inj) 20 mg Q4H PRN IV PUSH SYS BP GREATER THAN 180 MMHG Last administered on 07/27/17 20:59; Start 07/25/17 at 16:30; Stop at 23:06; Status DC Labetalol HCl (Trandate Inj) 20 mg Q4H PRN IV PUSH SBP >170 Last administered on 07/26/17 21:02; Start 07/25/17 at 16:30; Stop 07/27/17 at 23:06; Status DC Dextrose (D50w (Vial) Inj) 50 ml UNSCH PRN IV HYPOGLYCEMIA-SEE COMMENTS; Start 07/25/17 at 22:00 Glucagon (Glucagon Inj) 1 mg UNSCH PRN OTHER HYPOGLYCEMIA-SEE COMMENTS; Start 07/25/17 at 22:00 Insulin Aspart (NovoLOG SUPPLEMENTAL SCALE) 1 ACHS AND 3AM SQ Last administered on 07/26/17 20:25; Start 07/26/17 at 03:00 Bumetanide (Bumex Inj) 1 mg DAILY IV PUSH Last administered on 07/28/17 09:33 ; Start 07/27/17 at 13:30 Hydralazine HCl (Apresoline) 25 mg Q8HR PO Last administered on 07/28/17 06:21 ; Start 07/27/17 at 14:00 A/P Assessment and Plan A/P 1. Hypoglycemia, relative adrenal insufficiency: Continue dextrose in IV fluids. Currently on D5. Glyburide on hold. Received stress dose steroids IV. 2. Acute on chronic kidney disease stage IV: Appreciate nephrology recommendations. Creatinine remains elevated. Monitor labs. Avoid nephrotoxins. 3. History of stroke, left MCA: PT/OT. 4. Dilated cardiomyopathy, coronary artery disease: Continue metoprolol, isosorbide mononitrate, statin.echo pending. 5. Hypertension: Lisinopril on hold secondary to renal failure. increase hydralazine- will monitor and adjust the regimen as needed. 6. Diabetes mellitus with neuropathy: Continue pain control. 7. Depression: Continue citalopram, Wellbutrin. 8. GERD: PPI. 9. Normocytic anemia: Stable. Monitor H&H. 10. DVT prophylaxis: SCDs. Xarelto on hold secondary to acute kidney injury. Discharge Planning when cleared by nephrology. case management for [facility]. Maite Curtis MD Jul 28, 2017 11:12
--- NOTE | 2017-07-28 11:14 | HHI.FF ---
Face to Face Verification Diagnosis: (1) DM (diabetes mellitus), type 2, uncontrolled (2) Hypertension Physical Therapy Order: Evaluate and Treat Occupational Therapy Order: Evaluate and Treat Home Health Nursing Order: Medical education Diabetic education Medication education-adverse effect Nursing assessment with vital signs I have seen patient Anish Bear on 07/28/17. My clinical findings support the need for the requested home health care services because: Ltd mobility - disease progression I certify that my clinical findings support that this patient is homebound because: Poor cardiac reserve Maite Curtis MD Jul 28, 2017 11:14
[2017-07-28] MEDS: hydrALAZINE HCL 50 MG TAB PO SCH ×2 (13:34→21:13)
[2017-07-29] VITALS (8 sets, daily range): BP systolic 142–194; BP diastolic 61–90; PULSE 59–88; RESP 16–20; TEMP 97.1–98.4; O2SAT 95–97
[2017-07-29] MEDS: cloNIDine HCL 0.2 MG TAB PO SCH ×3 (01:21→16:56)
[2017-07-29] MEDS: INSULIN ASPART SUPPLEMENTAL SCALE SQ SCH ×5 (03:00→21:00)
[2017-07-29] MEDS: CHLORHEXIDINE GLUCONATE 2 % 1 PACK (2 CLOTHS) TOP SCH (04:00)
[2017-07-29] MEDS: NITROGLYCERIN 2% OINT 1 GM PACKET TOPICAL PRN (04:15)
[2017-07-29] MEDS: DEXTROSE 5% IN WATE 1000ML INJ 1,000 ML IV SCH (04:21)
[2017-07-29] MEDS: hydrALAZINE HCL 50 MG TAB PO SCH ×3 (05:59→22:06)
[2017-07-29] MEDS: MORPHINE SULFATE 4 MG/ML INJ IV PUSH PRN (06:00)
[2017-07-29] MEDS: CITALOPRAM HYDROBROMIDE 20 MG TAB PO SCH (07:41)
[2017-07-29] MEDS: CALCIUM ACETATE 667 MG CAP PO SCH ×3 (07:41→18:26)
[2017-07-29] MEDS: ISOSORBIDE MONONITRATE 60 MG TAB PO SCH (07:41)
[2017-07-29] MEDS: DOCUSATE SODIUM 50 MG/SENNA 8.6 MG TAB PO SCH ×2 (07:41→20:51)
[2017-07-29] MEDS: PANTOPRAZOLE SOD 40 MG DELAYED RELEASE TAB PO SCH (07:42)
[2017-07-29] MEDS: ATORVASTATIN 80 MG TAB PO SCH (07:42)
[2017-07-29] MEDS: buPROPion HCL 150 MG SUSTAINED RELEASE TAB PO SCH (07:42)
[2017-07-29] MEDS: SODIUM BICARBONATE 650 MG TAB PO SCH ×2 (07:42→20:51)
[2017-07-29] MEDS: METOPROLOL TARTRATE 50 MG TAB PO SCH ×2 (07:42→20:51)
[2017-07-29] MEDS: BUMETANIDE INJ 1 MG/4 ML VIAL IV PUSH SCH (07:43)
[2017-07-29] MEDS: SODIUM CHLORIDE 0.9% FLUSH 10 ML FLUSH IV FLUSH SCH ×2 (07:43→20:51)
[2017-07-29] MEDS: ARTIFICIAL TEARS OPTH SOLN 15 ML BTL EACH EYE SCH ×3 (07:43→18:26)
[2017-07-29 08:11] LABS: POTASSIUM 4.9 MEQ/L (3.5-5.1)
[2017-07-29 08:29] LABS: CALCIUM-PROTEIN CORRECTED 8.2 MG/DL (8.5-10.1)
--- NOTE | 2017-07-29 10:13 | HHI.PR ---
Subjective Remarks in no acute distress. denies pain. no new complaints. BP trend noted. d/w the RN. Objective Vitals Vital Signs Date Time Temp Pulse Resp B/P (MAP) Pulse Ox O2 Delivery O2 Flow Rate FiO2 07/29/17 08:00 97.8 88 18 183/90 (121) 96 178/88 (118) 07/29/17 06:00 170/80 (110) 07/29/17 04:00 97.6 61 20 194/84 (120) 96 07/29/17 00:00 98.4 59 20 182/61 (101) 97 07/28/17 23:56 98 07/28/17 20:00 96.1 62 16 195/88 (123) 99 07/28/17 15:35 18 07/28/17 12:00 98.3 65 18 180/76 (110) 97 175/75 (108) I/O 07/28/17 07/28/17 07/28/17 07/29/17 07/29/17 07/29/17 07:00 15:00 23:00 07:00 15:00 23:00 Intake Total 151 ml 320 ml Output Total 250 ml 950 ml Balance -99 ml -630 ml Intake Oral 320 ml IV Total 151 ml Output Urine Total 250 ml 950 ml # Bowel Movements 0 Result Diagram: 07/27/17 0553 07/29/17 0638 Imaging Last Impressions Renal Ultrasound 07/25/17 0000 Signed Impressions: Service Date/Time: Tuesday, July 25, 2017 08:14 - CONCLUSION: Unremarkable right kidney and urinary bladder. Nonvisualized left kidney. Sukumar Kitchen MD Lower Extremity Ultrasound 07/25/17 0000 Signed Impressions: Service Date/Time: Tuesday, July 25, 2017 08:06 - CONCLUSION: Subcutaneous edema without venous thrombosis. Yahir Bailey MD FACR Head CT 07/24/17 0000 Signed Impressions: Service Date/Time: Monday, July 24, 2017 21:12 - CONCLUSION: Exam no acute intracranial abnormality. Old left MCA distribution infarct. Mark Jett MD Chest X-Ray 07/24/17 0000 Signed Impressions: Service Date/Time: Monday, July 24, 2017 19:43 - CONCLUSION: Mild to moderate stable, compensated cardiomegaly. No acute cardiopulmonary disease demonstrated. Mark Jett MD Objective Remarks GENERAL: This is a well-nourished, well-developed patient, in no apparent distress. CARDIOVASCULAR: Regular rate and regular rhythm without murmurs, gallops, or rubs. RESPIRATORY: Clear to auscultation. Breath sounds equal bilaterally. No wheezes , rales, or rhonchi. GASTROINTESTINAL: Abdomen soft, non-tender, nondistended. Normal, active bowel sounds MUSCULOSKELETAL: s/p left BKA- mild right leg edema NEURO: Alert & Oriented x4 to person, place, time, situation. Moves all ext x4 Procedures None Medications and IVs Current Medications Dextrose (D50w (Syr) Inj) 25 ml ONCE ONCE IV PUSH Last administered on 19:31; Start 07/24/17 at 19:30; Stop 07/24/17 at 19:31; Status DC Octreotide Acetate (SandoSTATIN INJ) 50 mcg ONCE ONCE SQ Last administered on 07/24/17 21:28; Start 07/24/17 at 21:00; Stop 07/24/17 at 21:02; Status DC Dextrose/Lactated Ringer's 1,000 ml @ 84 mls/hr [id number] IV Last administered on 07/24/17 21:09; Start 07/24/17 at 21:00; Stop 07/25/17 at 00:32; Status DC Metoprolol Succinate (Toprol Xl) 50 mg ONCE ONCE PO Last administered on 21:09; Start 07/24/17 at 21:00; Stop 07/24/17 at 21:02; Status DC Dextrose (D50w (Syr) Inj) 25 ml ONCE ONCE IV PUSH Last administered on 22:05; Start 07/24/17 at 22:00; Stop 07/24/17 at 22:03; Status DC Sodium Chloride 154 meq/Dextrose 1,038.5 ml @ 75 mls/hr [id number] IV Last administered on 07/25/17 15:49; Start 07/24/17 at 22:15; Stop 07/25/17 at 16:00 ; Status DC Hydralazine HCl (Apresoline Inj) 10 mg Q1HR PRN IV PUSH SBP> OR = 180, DBP> OR = 100 Last administered on 07/25/17 15:49; Start 07/24/17 at 22:30; Stop at 16:30; Status DC Nitroglycerin (Nitroglycerin 2% Oint) 2 inch Q6HR PRN TOPICAL SBP> OR = 180, DBP> OR = 100 Last administered on 07/29/17 04:15; Start 07/24/17 at 22:30 Sodium Chloride (NS Flush) 2 ml UNSCH PRN IV FLUSH FLUSH AFTER USING IV ACCESS ; Start 07/24/17 at 22:30 Sodium Chloride (NS Flush) 2 ml BID IV FLUSH Last administered on 07/29/17 07: 43; Start 07/25/17 at 09:00 Acetaminophen (Tylenol) 650 mg Q6H PRN PO FEVER >101F; Start 07/24/17 at 22:30 Acetaminophen/ Hydrocodone Bitart ([place] 5-325 Mg) 1 tab Q4H PRN PO PAIN SCALE 1 TO 5 Last administered on 07/28/17 18:23; Start 07/24/17 at 22:30 Morphine Sulfate (Morphine Inj) 2 mg Q2H PRN IV PUSH PAIN SCALE 6 TO 10 Last administered on 07/29/17 06:00; Start 07/24/17 at 22:30 Pantoprazole Sodium (Protonix) 40 mg DAILY PO Last administered on 07/29/17 07 :42; Start 07/25/17 at 09:00 Artificial Tears (Tears Naturale Opth Soln) 1 drop TID EACH EYE Last administered on 07/29/17 07:43; Start 07/25/17 at 09:00 Ondansetron HCl (Zofran Inj) 4 mg Q6H PRN IV PUSH NAUSEA OR VOMITING Last administered on 07/28/17 10:28; Start 07/24/17 at 22:30 Albuterol/ Ipratropium (Duoneb Neb) 1 ampule Q4HR NEB INH Last administered on 07/28/17 23:55; Start 07/25/17 at 00:00; Stop 07/28/17 at 23:59; Status DC Albuterol Sulfate (Albuterol Neb) 2.5 mg Q2HR NEB PRN INH SOB/WHEEZING; Start 07/24/17 at 22:30 Miscellaneous Information 1 Q361D XX Last administered on 07/24/17 22:30; Start 07/24/17 at 22:30 Chlorhexidine Gluconate (Chlorhexidine 2% Cloth) 3 pack Taper DAILY@04 TOP Last administered on 07/27/17 04:00; Start 07/25/17 at 04:00; Stop 07/21/18 at 03:59 Chlorhexidine Gluconate (Chlorhexidine 2% Cloth) 3 pack UNSCH PRN TOP HYGIENIC CARE; Start 07/24/17 at 22:30 Senna/Docusate Sodium (Karen-Colace) 1 tab BID PO Last administered on 07:41; Start 07/25/17 at 09:00 Magnesium Hydroxide (Milk Of Magnesia Liq) 30 ml Q12H PRN PO MILD - MODERATE CONSTIPATION; Start 07/24/17 at 22:30 Sennosides (Senokot) 17.2 mg Q12H PRN PO MODERATE - SEVERE CONSTIPATION; Start 07/24/17 at 22:30 Bisacodyl (Dulcolax Supp) 10 mg DAILY PRN RECTAL SEVERE CONSITIPATION; Start at 22:30 Lactulose (Lactulose Liq) 30 ml DAILY PRN PO SEVERE CONSITIPATION; Start at 22:30 Bupropion HCl (Wellbutrin Xl 24 Hr) 150 mg DAILY PO Last administered on 09:32; Start 07/25/17 at 09:00; Stop 07/28/17 at 17:31; Status DC Citalopram Hydrobromide (CeleXA) 20 mg DAILY PO Last administered on 07/29/17 07:41; Start 07/25/17 at 09:00 Isosorbide Mononitrate (Imdur) 120 mg DAILY PO Last administered on 07/29/17 07:41; Start 07/25/17 at 09:00 Lisinopril (Prinivil) 20 mg DAILY PO ; Start 07/25/17 at 09:00; Stop 07/25/17 at 09:00; Status DC Metoprolol Tartrate (Lopressor) 50 mg DAILY PO Last administered on 07/25/17 09:19; Start 07/25/17 at 09:00; Stop 07/25/17 at 16:27; Status DC Rivaroxaban (Xarelto) 15 mg DAILY PO ; Start 07/25/17 at 09:00; Stop 07/25/17 at 09:00; Status DC Atorvastatin Calcium (Lipitor) 80 mg DAILY PO Last administered on 07/29/17 07 :42; Start 07/25/17 at 09:00 Octreotide Acetate (SandoSTATIN INJ) 50 mcg Q8HR SQ Last administered on 06:00; Start 07/25/17 at 06:00; Stop 07/26/17 at 19:57; Status DC Sodium Bicarbonate (Sodium Bicarbonate) 650 mg Q12HR PO Last administered on 07:42; Start 07/25/17 at 10:30 Calcium Acetate (Phoslo) 667 mg TID PO Last administered on 07/29/17 07:41; Start 07/25/17 at 13:00 Hydrocortisone Sodium Succinate (SoluCORTEF INJ) 100 mg Q8H IV ; Start 07/25/17 at 18:00; Stop 07/25/17 at 18:00; Status DC Hydrocortisone Sodium Succinate (SoluCORTEF INJ) 100 mg STK-MED ONCE .ROUTE Last administered on 07/25/17 10:48; Start 07/25/17 at 10:43; Stop 07/25/17 at 10:44; Status DC Dextrose 1,000 ml @ 30 mls/hr Q24H IV Last administered on 07/29/17 04:21; Start 07/25/17 at 16:00 Metoprolol Tartrate (Lopressor) 50 mg Q12H PO Last administered on 07/29/17 07 :42; Start 07/25/17 at 21:00 Clonidine (Catapres) 0.2 mg ONCE ONCE PO Last administered on 07/25/17 17:04 ; Start 07/25/17 at 16:30; Stop 07/25/17 at 16:51; Status DC Clonidine (Catapres) 0.2 mg Q8H PO Last administered on 07/29/17 07:41; Start 07/26/17 at 01:00 Hydralazine HCl (Apresoline Inj) 20 mg Q4H PRN IV PUSH SYS BP GREATER THAN 180 MMHG Last administered on 07/27/17 20:59; Start 07/25/17 at 16:30; Stop at 23:06; Status DC Labetalol HCl (Trandate Inj) 20 mg Q4H PRN IV PUSH SBP >170 Last administered on 07/26/17 21:02; Start 07/25/17 at 16:30; Stop 07/27/17 at 23:06; Status DC Dextrose (D50w (Vial) Inj) 50 ml UNSCH PRN IV HYPOGLYCEMIA-SEE COMMENTS; Start 07/25/17 at 22:00 Glucagon (Glucagon Inj) 1 mg UNSCH PRN OTHER HYPOGLYCEMIA-SEE COMMENTS; Start 07/25/17 at 22:00 Insulin Aspart (NovoLOG SUPPLEMENTAL SCALE) 1 ACHS AND 3AM SQ Last administered on 07/28/17 21:22; Start 07/26/17 at 03:00 Bumetanide (Bumex Inj) 1 mg DAILY IV PUSH Last administered on 07/29/17 07:43 ; Start 07/27/17 at 13:30 Hydralazine HCl (Apresoline) 25 mg Q8HR PO Last administered on 07/28/17 06:21 ; Start 07/27/17 at 14:00; Stop 07/28/17 at 11:15; Status DC Hydralazine HCl (Apresoline) 50 mg Q8HR PO Last administered on 07/29/17 05:59 ; Start 07/28/17 at 14:00 Bupropion HCl (Wellbutrin Sr) 150 mg DAILY PO Last administered on 07/29/17 07 :42; Start 07/29/17 at 09:00 A/P Assessment and Plan A/P 1. Hypoglycemia, relative adrenal insufficiency: Continue dextrose in IV fluids ; will decrease the rate ans will stop the IV fluid within the next 24 hrs if blood sugar level stable. Glyburide on hold. Received stress dose steroids IV. 2. Acute on chronic kidney disease stage IV: Appreciate nephrology recommendations. Creatinine remains elevated. Monitor labs. Avoid nephrotoxins. 3. History of stroke, left MCA: PT/OT. 4. Dilated cardiomyopathy, coronary artery disease: Continue metoprolol, isosorbide mononitrate, statin.echo pending. 5. Hypertension: Lisinopril on hold secondary to renal failure. increased hydralazine- will continue clonidine- add procardia XL-will monitor and adjust the regimen as needed. 6. Diabetes mellitus with neuropathy: Continue pain control. 7. Depression: Continue citalopram, Wellbutrin. 8. GERD: PPI. 9. Normocytic anemia: Stable. Monitor H&H. 10. DVT prophylaxis: SCDs. Xarelto on hold secondary to acute kidney injury. Discharge Planning when cleared by nephrology. case management for [facility]. Maite Curtis MD Jul 29, 2017 10:13
[2017-07-29] MEDS: ACETAMINOPHEN/HYDROcodone 325 MG/5 MG TAB PO PRN ×2 (10:57→21:01)
[2017-07-29] MEDS: NIFEdipine 30 MG SUSTAINED RELEASE TAB PO SCH (10:57)
--- NOTE | 2017-07-29 12:24 | ECHRPT ---
Indication: CARDIOMYOPATHY CONCLUSIONS Mildly dilated left ventricle. Moderate concentric left ventricular hypertrophy. There are findings consistent with ischemic cardiomyopathy. The left ventricular systolic function is moderately reduced with an estimated ejection fraction in the range of 40-45%. Hypokinetic mid-inferior wall motion. Hypokinetic basal inferior wall motion. Hypokinetic apical-inferior wall motion. Hypokinetic basal inferolateral wall motion. Hypokinetic mid-inferolateral wall motion. Hypokinetic basal anterolateral wall motion. The left atrial size is [id number] dilated. The interatrial septum not well visualized. Mild mitral annular calcification. Mild thickening of the mitral valve leaflets. Mild mitral valve regurgitation. The aortic valve is not well visualized. Aortic valve sclerosis is present. No aortic valve regurgitation. No aortic valve stenosis. The tricuspid valve is not well visualized. There is trace tricuspid valve regurgitation. The pulmonary valve is not well visualized. Trivial pulmonary valve regurgitation. The inferior vena cava was not well visualized. BP: 144 / 65 HR: 57 Rhythm: Sinus MEASUREMENTS (Male / Female) Normal Values Technical Quality:Fair., Technically difficult isaac dy 2D ECHO LV Diastolic Diameter PLAX 5.9 cm 4.2 - 5.9 / 3.9 - 5.3 cm LV Systolic Diameter PLAX 5.2 cm IVS Diastolic Thickness 1.4 cm 0.6 - 1.0 / 0.6 - 0.9 cm LVPW Diastolic Thickness 1.4 cm 0.6 - 1.0 / 0.6 - 0.9 cm LV Relative Wall Thickness 0.5 LVOT Diameter 2.7 cm Aortic Root Diameter 3.4 cm LA Systolic Diameter LX 4.9 cm 3.0 - 4.0 / 2.7 - 3.8 cm M-MODE AV Cusp Separation MM 1.8 cm DOPPLER AV Peak Velocity 172.0 cm/s AV Peak Gradient 11.8 mmHg AV Mean Gradient 6.0 mmHg AV Velocity Time Integral 36.7 cm LVOT Peak Velocity 79.7 cm/s LVOT Peak Gradient 2.5 mmHg LVOT Velocity Time Integral 19.1 cm LVOT Cardiac Index 2398.4 cm/minm AV Area Cont Eq vti 3.0 cm AV Area Cont Eq pk 2.7 cm Mitral E Point Velocity 88.4 cm/s Mitral A Point Velocity 59.2 cm/s Mitral E to A Ratio 1.5 LV E' Lateral Velocity 7.7 cm/s Mitral E to LV E' Lateral Ratio 11.5 LV E' Septal Velocity 4.6 cm/s Mitral E to LV E' Septal Ratio 19.3 TR Peak Velocity 277.0 cm/s TR Peak Gradient 30.7 mmHg PV Peak Velocity 72.9 cm/s PV Peak Gradient 2.1 mmHg FINDINGS LEFT VENTRICLE Mildly dilated left ventricle. Moderate concentric left ventricular hypertrophy. There are findings consistent with ischemic cardiomyopathy. The left ventricular systolic function is moderately reduced with an estimated ejection fraction in the range of 40-45%. Hypokinetic mid-inferior wall motion. Hypokinetic basal inferior wall motion. Hypokinetic apical-inferior wall motion. Hypokinetic basal inferolateral wall motion. Hypokinetic mid-inferolateral wall motion. Hypokinetic basal anterolateral wall motion. RIGHT VENTRICLE Normal right ventricular size and systolic function. LEFT ATRIUM The left atrial size is [id number] dilated. RIGHT ATRIUM The right atrial size is normal. ATRIAL SEPTUM The interatrial septum not well visualized. Normal atrial septal thickness without atrial level shunting by limited color doppler interrogation. AORTA The aortic root and proximal ascending aorta are normal in size on limited imaging. MITRAL VALVE Mild mitral annular calcification. Mild thickening of the mitral valve leaflets. Mild mitral valve regurgitation. AORTIC VALVE The aortic valve is not well visualized. Aortic valve sclerosis is present. No aortic valve regurgitation. No aortic valve stenosis. TRICUSPID VALVE The tricuspid valve is not well visualized. There is trace tricuspid valve regurgitation. PULMONARY VALVE The pulmonary valve is not well visualized. Trivial pulmonary valve regurgitation. VESSELS The inferior vena cava was not well visualized. PERICARDIUM No pericardial effusion. Abhay Barrera MD (Electronically Signed) Final Date:29 July 2017 12:23
[2017-07-30] VITALS (7 sets, daily range): BP systolic 175–198; BP diastolic 72–87; PULSE 56–61; RESP 16–20; TEMP 96.9–97.9; O2SAT 95–97
[2017-07-30] MEDS: cloNIDine HCL 0.2 MG TAB PO SCH ×3 (01:11→18:22)
[2017-07-30] MEDS: INSULIN ASPART SUPPLEMENTAL SCALE SQ SCH ×5 (03:00→20:15)
[2017-07-30] MEDS: CHLORHEXIDINE GLUCONATE 2 % 1 PACK (2 CLOTHS) TOP SCH (03:27)
[2017-07-30] MEDS: MORPHINE SULFATE 4 MG/ML INJ IV PUSH PRN ×2 (04:33→09:55)
[2017-07-30] MEDS: hydrALAZINE HCL 50 MG TAB PO SCH ×3 (04:33→20:13)
[2017-07-30] MEDS: DEXTROSE 5% IN WATE 1000ML INJ 1,000 ML IV SCH (04:33)
[2017-07-30 06:27] LABS: BICARBONATE 25.8 MEQ/L (21.0-32.0); POTASSIUM 4.8 MEQ/L (3.5-5.1)
[2017-07-30] MEDS: ARTIFICIAL TEARS OPTH SOLN 15 ML BTL EACH EYE SCH ×3 (09:00→18:00)
[2017-07-30] MEDS: DOCUSATE SODIUM 50 MG/SENNA 8.6 MG TAB PO SCH ×2 (09:00→20:15)
[2017-07-30] MEDS: ATORVASTATIN 80 MG TAB PO SCH (09:00)
[2017-07-30] MEDS: SODIUM CHLORIDE 0.9% FLUSH 10 ML FLUSH IV FLUSH SCH ×2 (09:00→21:00)
[2017-07-30] MEDS: PANTOPRAZOLE SOD 40 MG DELAYED RELEASE TAB PO SCH (09:44)
[2017-07-30] MEDS: ISOSORBIDE MONONITRATE 60 MG TAB PO SCH (09:44)
[2017-07-30] MEDS: buPROPion HCL 150 MG SUSTAINED RELEASE TAB PO SCH (09:44)
[2017-07-30] MEDS: SODIUM BICARBONATE 650 MG TAB PO SCH (09:45)
[2017-07-30] MEDS: METOPROLOL TARTRATE 50 MG TAB PO SCH ×2 (09:45→20:13)
[2017-07-30] MEDS: NIFEdipine 30 MG SUSTAINED RELEASE TAB PO SCH ×2 (09:45→20:14)
[2017-07-30] MEDS: CALCIUM ACETATE 667 MG CAP PO SCH ×3 (09:45→18:22)
[2017-07-30] MEDS: CITALOPRAM HYDROBROMIDE 20 MG TAB PO SCH (09:45)
[2017-07-30] MEDS: BUMETANIDE INJ 1 MG/4 ML VIAL IV PUSH SCH (09:56)
--- NOTE | 2017-07-30 12:12 | HHI.PR ---
Subjective Remarks resting comfortably with no distress. denies pain. BP trend noted. Objective Vitals Vital Signs Date Time Temp Pulse Resp B/P (MAP) Pulse Ox O2 Delivery O2 Flow Rate FiO2 07/30/17 08:00 97.5 57 18 190/72 (111) 96 07/30/17 04:30 96.9 58 16 198/80 (119) 97 07/30/17 00:00 97.3 56 16 180/79 (112) 97 07/29/17 21:00 59 07/29/17 20:00 97.6 60 16 142/65 (90) 96 07/29/17 16:00 97.8 61 17 154/67 (96) 97 07/29/17 12:00 97.1 60 17 188/85 (119) 95 07/29/17 11:57 18 I/O 07/29/17 07/29/17 07/29/17 07/30/17 07/30/17 07/30/17 07:00 15:00 23:00 07:00 15:00 23:00 Intake Total 320 ml 480 ml Output Total 950 ml 3050 ml 850 ml Balance -630 ml -2570 ml -850 ml Intake Oral 320 ml 480 ml Output Urine Total 950 ml 3050 ml 850 ml # Bowel Movements 0 0 Result Diagram: 07/27/17 0553 07/30/17 0455 Imaging Last Impressions Renal Ultrasound 07/25/17 0000 Signed Impressions: Service Date/Time: Tuesday, July 25, 2017 08:14 - CONCLUSION: Unremarkable right kidney and urinary bladder. Nonvisualized left kidney. Sukumar Kitchen MD Lower Extremity Ultrasound 07/25/17 0000 Signed Impressions: Service Date/Time: Tuesday, July 25, 2017 08:06 - CONCLUSION: Subcutaneous edema without venous thrombosis. Yahir Bailey MD FACR Head CT 07/24/17 0000 Signed Impressions: Service Date/Time: Monday, July 24, 2017 21:12 - CONCLUSION: Exam no acute intracranial abnormality. Old left MCA distribution infarct. Mark Jett MD Chest X-Ray 07/24/17 0000 Signed Impressions: Service Date/Time: Monday, July 24, 2017 19:43 - CONCLUSION: Mild to moderate stable, compensated cardiomegaly. No acute cardiopulmonary disease demonstrated. Mark Jett MD Objective Remarks GENERAL: This is a well-nourished, well-developed patient, in no apparent distress. CARDIOVASCULAR: Regular rate and regular rhythm without murmurs, gallops, or rubs. RESPIRATORY: Clear to auscultation. Breath sounds equal bilaterally. No wheezes , rales, or rhonchi. GASTROINTESTINAL: Abdomen soft, non-tender, nondistended. Normal, active bowel sounds MUSCULOSKELETAL: s/p left BKA- mild right leg edema NEURO: Alert & Oriented x4 to person, place, time, situation. Moves all ext x4 Procedures None Medications and IVs Current Medications Dextrose (D50w (Syr) Inj) 25 ml ONCE ONCE IV PUSH Last administered on 19:31; Start 07/24/17 at 19:30; Stop 07/24/17 at 19:31; Status DC Octreotide Acetate (SandoSTATIN INJ) 50 mcg ONCE ONCE SQ Last administered on 07/24/17 21:28; Start 07/24/17 at 21:00; Stop 07/24/17 at 21:02; Status DC Dextrose/Lactated Ringer's 1,000 ml @ 84 mls/hr [id number] IV Last administered on 07/24/17 21:09; Start 07/24/17 at 21:00; Stop 07/25/17 at 00:32; Status DC Metoprolol Succinate (Toprol Xl) 50 mg ONCE ONCE PO Last administered on 21:09; Start 07/24/17 at 21:00; Stop 07/24/17 at 21:02; Status DC Dextrose (D50w (Syr) Inj) 25 ml ONCE ONCE IV PUSH Last administered on 22:05; Start 07/24/17 at 22:00; Stop 07/24/17 at 22:03; Status DC Sodium Chloride 154 meq/Dextrose 1,038.5 ml @ 75 mls/hr [id number] IV Last administered on 07/25/17 15:49; Start 07/24/17 at 22:15; Stop 07/25/17 at 16:00 ; Status DC Hydralazine HCl (Apresoline Inj) 10 mg Q1HR PRN IV PUSH SBP> OR = 180, DBP> OR = 100 Last administered on 07/25/17 15:49; Start 07/24/17 at 22:30; Stop at 16:30; Status DC Nitroglycerin (Nitroglycerin 2% Oint) 2 inch Q6HR PRN TOPICAL SBP> OR = 180, DBP> OR = 100 Last administered on 07/29/17 04:15; Start 07/24/17 at 22:30; Stop 07/29/17 at 10:11; Status DC Sodium Chloride (NS Flush) 2 ml UNSCH PRN IV FLUSH FLUSH AFTER USING IV ACCESS ; Start 07/24/17 at 22:30 Sodium Chloride (NS Flush) 2 ml BID IV FLUSH Last administered on 07/29/17 07: 43; Start 07/25/17 at 09:00 Acetaminophen (Tylenol) 650 mg Q6H PRN PO FEVER >101F; Start 07/24/17 at 22:30 Acetaminophen/ Hydrocodone Bitart ([place] 5-325 Mg) 1 tab Q4H PRN PO PAIN SCALE 1 TO 5 Last administered on 07/29/17 21:01; Start 07/24/17 at 22:30 Morphine Sulfate (Morphine Inj) 2 mg Q2H PRN IV PUSH PAIN SCALE 6 TO 10 Last administered on 07/30/17 09:55; Start 07/24/17 at 22:30 Pantoprazole Sodium (Protonix) 40 mg DAILY PO Last administered on 07/30/17 09 :44; Start 07/25/17 at 09:00 Artificial Tears (Tears Naturale Opth Soln) 1 drop TID EACH EYE Last administered on 07/30/17 09:00; Start 07/25/17 at 09:00 Ondansetron HCl (Zofran Inj) 4 mg Q6H PRN IV PUSH NAUSEA OR VOMITING Last administered on 07/28/17 10:28; Start 07/24/17 at 22:30 Albuterol/ Ipratropium (Duoneb Neb) 1 ampule Q4HR NEB INH Last administered on 07/28/17 23:55; Start 07/25/17 at 00:00; Stop 07/28/17 at 23:59; Status DC Albuterol Sulfate (Albuterol Neb) 2.5 mg Q2HR NEB PRN INH SOB/WHEEZING; Start 07/24/17 at 22:30 Miscellaneous Information 1 Q361D XX Last administered on 07/24/17 22:30; Start 07/24/17 at 22:30 Chlorhexidine Gluconate (Chlorhexidine 2% Cloth) Taper DAILY@04 TOP Last administered on 07/27/17 04:00; Start 07/25/17 at 04:00; Stop 07/21/18 at 03:59 Chlorhexidine Gluconate (Chlorhexidine 2% Cloth) 3 pack UNSCH PRN TOP HYGIENIC CARE; Start 07/24/17 at 22:30 Senna/Docusate Sodium (Karen-Colace) 1 tab BID PO Last administered on 20:51; Start 07/25/17 at 09:00 Magnesium Hydroxide (Milk Of Magnesia Liq) 30 ml Q12H PRN PO MILD - MODERATE CONSTIPATION; Start 07/24/17 at 22:30 Sennosides (Senokot) 17.2 mg Q12H PRN PO MODERATE - SEVERE CONSTIPATION; Start 07/24/17 at 22:30 Bisacodyl (Dulcolax Supp) 10 mg DAILY PRN RECTAL SEVERE CONSITIPATION; Start at 22:30 Lactulose (Lactulose Liq) 30 ml DAILY PRN PO SEVERE CONSITIPATION; Start at 22:30 Bupropion HCl (Wellbutrin Xl 24 Hr) 150 mg DAILY PO Last administered on 09:32; Start 07/25/17 at 09:00; Stop 07/28/17 at 17:31; Status DC Citalopram Hydrobromide (CeleXA) 20 mg DAILY PO Last administered on 07/30/17 09:45; Start 07/25/17 at 09:00 Isosorbide Mononitrate (Imdur) 120 mg DAILY PO Last administered on 07/30/17 09:44; Start 07/25/17 at 09:00 Lisinopril (Prinivil) 20 mg DAILY PO ; Start 07/25/17 at 09:00; Stop 07/25/17 at 09:00; Status DC Metoprolol Tartrate (Lopressor) 50 mg DAILY PO Last administered on 07/25/17 09:19; Start 07/25/17 at 09:00; Stop 07/25/17 at 16:27; Status DC Rivaroxaban (Xarelto) 15 mg DAILY PO ; Start 07/25/17 at 09:00; Stop 07/25/17 at 09:00; Status DC Atorvastatin Calcium (Lipitor) 80 mg DAILY PO Last administered on 07/30/17 09 :00; Start 07/25/17 at 09:00 Octreotide Acetate (SandoSTATIN INJ) 50 mcg Q8HR SQ Last administered on 06:00; Start 07/25/17 at 06:00; Stop 07/26/17 at 19:57; Status DC Sodium Bicarbonate (Sodium Bicarbonate) 650 mg Q12HR PO Last administered on 09:45; Start 07/25/17 at 10:30 Calcium Acetate (Phoslo) 667 mg TID PO Last administered on 07/30/17 09:45; Start 07/25/17 at 13:00 Hydrocortisone Sodium Succinate (SoluCORTEF INJ) 100 mg Q8H IV ; Start 07/25/17 at 18:00; Stop 07/25/17 at 18:00; Status DC Hydrocortisone Sodium Succinate (SoluCORTEF INJ) 100 mg STK-MED ONCE .ROUTE Last administered on 07/25/17 10:48; Start 07/25/17 at 10:43; Stop 07/25/17 at 10:44; Status DC Dextrose 1,000 ml @ 20 mls/hr Q24H IV Last administered on 07/30/17 04:33; Start 07/25/17 at 16:00 Metoprolol Tartrate (Lopressor) 50 mg Q12H PO Last administered on 07/30/17 09 :45; Start 07/25/17 at 21:00 Clonidine (Catapres) 0.2 mg ONCE ONCE PO Last administered on 07/25/17 17:04 ; Start 07/25/17 at 16:30; Stop 07/25/17 at 16:51; Status DC Clonidine (Catapres) 0.2 mg Q8H PO Last administered on 07/30/17 09:45; Start 07/26/17 at 01:00 Hydralazine HCl (Apresoline Inj) 20 mg Q4H PRN IV PUSH SYS BP GREATER THAN 180 MMHG Last administered on 07/27/17 20:59; Start 07/25/17 at 16:30; Stop at 23:06; Status DC Labetalol HCl (Trandate Inj) 20 mg Q4H PRN IV PUSH SBP >170 Last administered on 07/26/17 21:02; Start 07/25/17 at 16:30; Stop 07/27/17 at 23:06; Status DC Dextrose (D50w (Vial) Inj) 50 ml UNSCH PRN IV HYPOGLYCEMIA-SEE COMMENTS; Start 07/25/17 at 22:00 Glucagon (Glucagon Inj) 1 mg UNSCH PRN OTHER HYPOGLYCEMIA-SEE COMMENTS; Start 07/25/17 at 22:00 Insulin Aspart (NovoLOG SUPPLEMENTAL SCALE) 1 ACHS AND 3AM SQ Last administered on 07/30/17 09:45; Start 07/26/17 at 03:00 Bumetanide (Bumex Inj) 1 mg DAILY IV PUSH Last administered on 07/30/17 09:56 ; Start 07/27/17 at 13:30 Hydralazine HCl (Apresoline) 25 mg Q8HR PO Last administered on 07/28/17 06:21 ; Start 07/27/17 at 14:00; Stop 07/28/17 at 11:15; Status DC Hydralazine HCl (Apresoline) 50 mg Q8HR PO Last administered on 07/30/17 04:33 ; Start 07/28/17 at 14:00 Bupropion HCl (Wellbutrin Sr) 150 mg DAILY PO Last administered on 07/30/17 09 :44; Start 07/29/17 at 09:00 Nifedipine (Procardia Xl) 30 mg DAILY PO Last administered on 07/30/17 09:45; Start 07/29/17 at 10:15 A/P Assessment and Plan A/P 1. Hypoglycemia, relative adrenal insufficiency: Glyburide on hold. Received stress dose steroids IV. 2. Acute on chronic kidney disease stage IV: Appreciate nephrology recommendations. Creatinine remains elevated. Monitor labs. Avoid nephrotoxins. 3. History of stroke, left MCA: PT/OT. 4. Dilated cardiomyopathy, coronary artery disease: Continue metoprolol, isosorbide mononitrate, statin.echo with EF 45%. 5. Hypertension: Lisinopril on hold secondary to renal failure. continue hydralazine- will continue clonidine-increase procardia XL-will monitor and adjust the regimen as needed. 6. Diabetes mellitus with neuropathy: Continue pain control. 7. Depression: Continue citalopram, Wellbutrin. 8. GERD: PPI. 9. Normocytic anemia: Stable. Monitor H&H. 10. DVT prophylaxis: SCDs. Xarelto on hold secondary to acute kidney injury. Discharge Planning dc home with [facility] - possibly tomorrow if BP better. d/w the case management. Maite Curtis MD Jul 30, 2017 11:55
[2017-07-30] MEDS ORDERED: MISCMIS81 (13:52)
--- NOTE | 2017-07-30 20:11 | HHI.NPPN ---
Subjective History of Present Illness 52-year-old male known to me from before with past medical history of hypertension, diabetes mellitus, morbid obesity, sleep apnea, bronchial asthma, hyperlipidemia, atrial fibrillation, history of CVA. The patient came to the hospital because of recurrent hypoglycemia. I was called to see the patient because of elevated BUN and creatinine. The patient has known history of chronic kidney disease. He has been following with me in the office and the last time I saw him, his creatinine was around 2.7 which is probably his baseline and now he came in with a creatinine of 4.9. Additional Remarks Patient is feeling better, no SOB and swelling in the leg is better, feeling better. Review of Systems General Constitutional: Fatigue Respiratory Lungs: SOB, Wheeze Cardiovascular Cardiac: Edema, SANCHEZ Objective Data Data 07/30/17 07/31/17 19:00 07:00 Intake Total 720 ml Output Total 1450 ml Balance -730 ml Intake Oral 720 ml Output Urine Total 1450 ml # Bowel Movements 0 Vital Signs Date Time Temp Pulse Resp B/P (MAP) Pulse Ox O2 Delivery O2 Flow Rate FiO2 07/30/17 16:00 97.9 58 20 184/73 (110) 96 07/30/17 12:00 97.7 58 18 195/87 (123) 96 07/30/17 08:00 97.5 57 18 190/72 (111) 96 07/30/17 04:30 96.9 58 16 198/80 (119) 97 07/30/17 00:00 97.3 56 16 180/79 (112) 97 07/29/17 21:00 59 -: 07/27/17 0553 07/30/17 0455 Physical Exam General Appearance: No Acute Distress, Comfortable Eyes Eye Exam: Pupils Equal Throat Throat Exam: Oral Mucosa [place] & Moist Neck Neck Exam: Neck Supple Pulmonary Resp Exam: Breath Sounds Equal, Rhonchi, Decreased Bases, Diminished Breath Sounds Cardiology CV Exam: Regular Gastrointestinal/Abdomen GI Exam: Soft, Non-Tender, Bowel Sounds Present Extremeties Extremities Exam: Moderate Edema Neurologic Neuro Exam: Alert, Awake, Oriented Psychiatric Psych Exam: Appropriate Responses Assessment/Plan Assessment Summary: NICOLAS/Acute Renal Failure, Fluid/Volume Overload, CKD Stage IV Electrolyte Assessment: Metabolic Acidosis Problem List: (1) HTN (hypertension) ICD Codes: I10 - HTN (hypertension) Status: Chronic (2) DM (diabetes mellitus) ICD Codes: E11.9 - DM (diabetes mellitus) Status: Chronic (3) Anemia ICD Codes: D64.9 - Anemia Status: Acute (4) Edema ICD Codes: R60.9 - Edema, unspecified Status: Acute (5) Acute worsening of stage 4 chronic kidney disease ICD Codes: N18.4 - Chronic kidney disease, stage 4 (severe); N28.9 - Acute worsening of stage 4 chronic kidney disease Status: Acute (6) Acute kidney injury ICD Codes: N17.9 - Acute kidney injury Status: Acute Plan Patient has advance stage 4 chronic kidney disease. Now develop also NICOLAS. Creatinine is better. Started on low dose Bumex. Control the BP. On NaHco3 for acidosis, now better. Follow the urine out put and the BMP. D/C NaHco3, follow the BP. On Nifedipine, Metoprolol and Hydralazine. Problem Qualifiers (1) HTN (hypertension): Qualified Codes: I10 - Essential (primary) hypertension Judy Quintana MD Jul 30, 2017 20:11
[2017-07-30] MEDS: ACETAMINOPHEN/HYDROcodone 325 MG/5 MG TAB PO PRN (20:14)
[2017-07-31] VITALS: BP 175/79; PULSE 61; RESP 18; TEMP 97.8; O2SAT 95
[2017-07-31] MEDS: cloNIDine HCL 0.2 MG TAB PO SCH ×2 (00:11→08:54)
[2017-07-31] MEDS: ACETAMINOPHEN/HYDROcodone 325 MG/5 MG TAB PO PRN ×2 (00:14→11:02)
[2017-07-31] MEDS: INSULIN ASPART SUPPLEMENTAL SCALE SQ SCH ×3 (03:00→12:38)
[2017-07-31] MEDS: CHLORHEXIDINE GLUCONATE 2 % 1 PACK (2 CLOTHS) TOP SCH (04:00)
[2017-07-31] MEDS: hydrALAZINE HCL 50 MG TAB PO SCH ×2 (05:38→14:32)
[2017-07-31 08:00] VITALS: BP_SYST 174; PULSE 53; RESP 18; TEMP 96.5; O2SAT 96
[2017-07-31] MEDS: METOPROLOL TARTRATE 50 MG TAB PO SCH (08:54)
[2017-07-31] MEDS: buPROPion HCL 150 MG SUSTAINED RELEASE TAB PO SCH (08:54)
[2017-07-31] MEDS: PANTOPRAZOLE SOD 40 MG DELAYED RELEASE TAB PO SCH (08:54)
[2017-07-31] MEDS: ISOSORBIDE MONONITRATE 60 MG TAB PO SCH (08:55)
[2017-07-31] MEDS: ATORVASTATIN 80 MG TAB PO SCH (08:56)
[2017-07-31] MEDS: CALCIUM ACETATE 667 MG CAP PO SCH ×2 (08:56→11:53)
[2017-07-31] MEDS: CITALOPRAM HYDROBROMIDE 20 MG TAB PO SCH (08:57)
[2017-07-31] MEDS: NIFEdipine 30 MG SUSTAINED RELEASE TAB PO SCH (08:57)
[2017-07-31] MEDS: BUMETANIDE INJ 1 MG/4 ML VIAL IV PUSH SCH (08:59)
[2017-07-31] MEDS: DOCUSATE SODIUM 50 MG/SENNA 8.6 MG TAB PO SCH (09:00)
[2017-07-31] MEDS: SODIUM CHLORIDE 0.9% FLUSH 10 ML FLUSH IV FLUSH SCH (09:02)
[2017-07-31] MEDS: ARTIFICIAL TEARS OPTH SOLN 15 ML BTL EACH EYE SCH ×2 (09:02→12:38)
[2017-07-31 12:00] VITALS: BP 157/77; PULSE 54; RESP 17; TEMP 96.7; O2SAT 97
--- NOTE | 2017-07-31 12:26 | HHI.PR ---
Subjective Remarks resting comfortably with no distress. no new complaints. d/w the RN and no acute issues over night. Objective Vitals Vital Signs Date Time Temp Pulse Resp B/P (MAP) Pulse Ox O2 Delivery O2 Flow Rate FiO2 07/31/17 08:00 96.5 53 18 174/ 96 07/31/17 00:00 97.8 61 18 175/79 (111) 95 07/30/17 23:47 97.8 61 18 175/79 (111) 95 07/30/17 20:00 97.7 58 18 181/77 (111) 97 07/30/17 16:00 97.9 58 20 184/73 (110) 96 I/O 07/30/17 07/30/17 07/30/17 07/31/17 07/31/17 07/31/17 07:00 15:00 23:00 07:00 15:00 23:00 Intake Total 720 ml Output Total 850 ml 1450 ml 500 ml Balance -850 ml -730 ml -500 ml Intake Oral 720 ml Output Urine Total 850 ml 1450 ml 500 ml # Bowel Movements 0 Result Diagram: 07/27/17 0553 07/30/17 0455 Imaging Last Impressions Renal Ultrasound 07/25/17 0000 Signed Impressions: Service Date/Time: Tuesday, July 25, 2017 08:14 - CONCLUSION: Unremarkable right kidney and urinary bladder. Nonvisualized left kidney. Sukumar Kitchen MD Lower Extremity Ultrasound 07/25/17 0000 Signed Impressions: Service Date/Time: Tuesday, July 25, 2017 08:06 - CONCLUSION: Subcutaneous edema without venous thrombosis. Yahir Bailey MD FACR Head CT 07/24/17 0000 Signed Impressions: Service Date/Time: Monday, July 24, 2017 21:12 - CONCLUSION: Exam no acute intracranial abnormality. Old left MCA distribution infarct. Mark Jett MD Chest X-Ray 07/24/17 0000 Signed Impressions: Service Date/Time: Monday, July 24, 2017 19:43 - CONCLUSION: Mild to moderate stable, compensated cardiomegaly. No acute cardiopulmonary disease demonstrated. Mark Jett MD Objective Remarks GENERAL: This is a well-nourished, well-developed patient, in no apparent distress. CARDIOVASCULAR: Regular rate and regular rhythm without murmurs, gallops, or rubs. RESPIRATORY: Clear to auscultation. Breath sounds equal bilaterally. No wheezes , rales, or rhonchi. GASTROINTESTINAL: Abdomen soft, non-tender, nondistended. Normal, active bowel sounds MUSCULOSKELETAL: s/p left BKA- mild right leg edema NEURO: Alert & Oriented x4 to person, place, time, situation. Moves all ext x4 Procedures None Medications and IVs Current Medications Dextrose (D50w (Syr) Inj) 25 ml ONCE ONCE IV PUSH Last administered on 19:31; Start 07/24/17 at 19:30; Stop 07/24/17 at 19:31; Status DC Octreotide Acetate (SandoSTATIN INJ) 50 mcg ONCE ONCE SQ Last administered on 07/24/17 21:28; Start 07/24/17 at 21:00; Stop 07/24/17 at 21:02; Status DC Dextrose/Lactated Ringer's 1,000 ml @ 84 mls/hr [id number] IV Last administered on 07/24/17 21:09; Start 07/24/17 at 21:00; Stop 07/25/17 at 00:32; Status DC Metoprolol Succinate (Toprol Xl) 50 mg ONCE ONCE PO Last administered on 21:09; Start 07/24/17 at 21:00; Stop 07/24/17 at 21:02; Status DC Dextrose (D50w (Syr) Inj) 25 ml ONCE ONCE IV PUSH Last administered on 22:05; Start 07/24/17 at 22:00; Stop 07/24/17 at 22:03; Status DC Sodium Chloride 154 meq/Dextrose 1,038.5 ml @ 75 mls/hr [id number] IV Last administered on 07/25/17 15:49; Start 07/24/17 at 22:15; Stop 07/25/17 at 16:00 ; Status DC Hydralazine HCl (Apresoline Inj) 10 mg Q1HR PRN IV PUSH SBP> OR = 180, DBP> OR = 100 Last administered on 07/25/17 15:49; Start 07/24/17 at 22:30; Stop at 16:30; Status DC Nitroglycerin (Nitroglycerin 2% Oint) 2 inch Q6HR PRN TOPICAL SBP> OR = 180, DBP> OR = 100 Last administered on 07/29/17 04:15; Start 07/24/17 at 22:30; Stop 07/29/17 at 10:11; Status DC Sodium Chloride (NS Flush) 2 ml UNSCH PRN IV FLUSH FLUSH AFTER USING IV ACCESS ; Start 07/24/17 at 22:30 Sodium Chloride (NS Flush) 2 ml BID IV FLUSH Last administered on 07/31/17 09: 02; Start 07/25/17 at 09:00 Acetaminophen (Tylenol) 650 mg Q6H PRN PO FEVER >101F; Start 07/24/17 at 22:30 Acetaminophen/ Hydrocodone Bitart ([place] 5-325 Mg) 1 tab Q4H PRN PO PAIN SCALE 1 TO 5 Last administered on 07/31/17 11:02; Start 07/24/17 at 22:30 Morphine Sulfate (Morphine Inj) 2 mg Q2H PRN IV PUSH PAIN SCALE 6 TO 10 Last administered on 07/30/17 09:55; Start 07/24/17 at 22:30 Pantoprazole Sodium (Protonix) 40 mg DAILY PO Last administered on 07/31/17 08 :54; Start 07/25/17 at 09:00 Artificial Tears (Tears Naturale Opth Soln) 1 drop TID EACH EYE Last administered on 07/31/17 09:02; Start 07/25/17 at 09:00 Ondansetron HCl (Zofran Inj) 4 mg Q6H PRN IV PUSH NAUSEA OR VOMITING Last administered on 07/28/17 10:28; Start 07/24/17 at 22:30 Albuterol/ Ipratropium (Duoneb Neb) 1 ampule Q4HR NEB INH Last administered on 07/28/17 23:55; Start 07/25/17 at 00:00; Stop 07/28/17 at 23:59; Status DC Albuterol Sulfate (Albuterol Neb) 2.5 mg Q2HR NEB PRN INH SOB/WHEEZING; Start 07/24/17 at 22:30 Miscellaneous Information 1 Q361D XX Last administered on 07/24/17 22:30; Start 07/24/17 at 22:30 Chlorhexidine Gluconate (Chlorhexidine 2% Cloth) Taper DAILY@04 TOP Last administered on 07/31/17 04:00; Start 07/25/17 at 04:00; Stop 07/21/18 at 03:59 Chlorhexidine Gluconate (Chlorhexidine 2% Cloth) 3 pack UNSCH PRN TOP HYGIENIC CARE; Start 07/24/17 at 22:30 Senna/Docusate Sodium (Karen-Colace) 1 tab BID PO Last administered on 20:15; Start 07/25/17 at 09:00 Magnesium Hydroxide (Milk Of Magnesia Liq) 30 ml Q12H PRN PO MILD - MODERATE CONSTIPATION; Start 07/24/17 at 22:30 Sennosides (Senokot) 17.2 mg Q12H PRN PO MODERATE - SEVERE CONSTIPATION; Start 07/24/17 at 22:30 Bisacodyl (Dulcolax Supp) 10 mg DAILY PRN RECTAL SEVERE CONSITIPATION; Start at 22:30 Lactulose (Lactulose Liq) 30 ml DAILY PRN PO SEVERE CONSITIPATION Last administered on 07/30/17 18:22; Start 07/24/17 at 22:30 Bupropion HCl (Wellbutrin Xl 24 Hr) 150 mg DAILY PO Last administered on 09:32; Start 07/25/17 at 09:00; Stop 07/28/17 at 17:31; Status DC Citalopram Hydrobromide (CeleXA) 20 mg DAILY PO Last administered on 07/31/17 08:57; Start 07/25/17 at 09:00 Isosorbide Mononitrate (Imdur) 120 mg DAILY PO Last administered on 07/31/17 08:55; Start 07/25/17 at 09:00 Lisinopril (Prinivil) 20 mg DAILY PO ; Start 07/25/17 at 09:00; Stop 07/25/17 at 09:00; Status DC Metoprolol Tartrate (Lopressor) 50 mg DAILY PO Last administered on 07/25/17 09:19; Start 07/25/17 at 09:00; Stop 07/25/17 at 16:27; Status DC Rivaroxaban (Xarelto) 15 mg DAILY PO ; Start 07/25/17 at 09:00; Stop 07/25/17 at 09:00; Status DC Atorvastatin Calcium (Lipitor) 80 mg DAILY PO Last administered on 07/31/17 08 :56; Start 07/25/17 at 09:00 Octreotide Acetate (SandoSTATIN INJ) 50 mcg Q8HR SQ Last administered on 06:00; Start 07/25/17 at 06:00; Stop 07/26/17 at 19:57; Status DC Sodium Bicarbonate (Sodium Bicarbonate) 650 mg Q12HR PO Last administered on 09:45; Start 07/25/17 at 10:30; Stop 07/30/17 at 20:11; Status DC Calcium Acetate (Phoslo) 667 mg TID PO Last administered on 07/31/17 11:53; Start 07/25/17 at 13:00 Hydrocortisone Sodium Succinate (SoluCORTEF INJ) 100 mg Q8H IV ; Start 07/25/17 at 18:00; Stop 07/25/17 at 18:00; Status DC Hydrocortisone Sodium Succinate (SoluCORTEF INJ) 100 mg STK-MED ONCE .ROUTE Last administered on 07/25/17 10:48; Start 07/25/17 at 10:43; Stop 07/25/17 at 10:44; Status DC Dextrose 1,000 ml @ 20 mls/hr Q24H IV Last administered on 07/30/17 04:33; Start 07/25/17 at 16:00; Status Future Hold Metoprolol Tartrate (Lopressor) 50 mg Q12H PO Last administered on 07/31/17 08 :54; Start 07/25/17 at 21:00 Clonidine (Catapres) 0.2 mg ONCE ONCE PO Last administered on 07/25/17 17:04 ; Start 07/25/17 at 16:30; Stop 07/25/17 at 16:51; Status DC Clonidine (Catapres) 0.2 mg Q8H PO Last administered on 07/31/17 08:54; Start 07/26/17 at 01:00 Hydralazine HCl (Apresoline Inj) 20 mg Q4H PRN IV PUSH SYS BP GREATER THAN 180 MMHG Last administered on 07/27/17 20:59; Start 07/25/17 at 16:30; Stop at 23:06; Status DC Labetalol HCl (Trandate Inj) 20 mg Q4H PRN IV PUSH SBP >170 Last administered on 07/26/17 21:02; Start 07/25/17 at 16:30; Stop 07/27/17 at 23:06; Status DC Dextrose (D50w (Vial) Inj) 50 ml UNSCH PRN IV HYPOGLYCEMIA-SEE COMMENTS; Start 07/25/17 at 22:00 Glucagon (Glucagon Inj) 1 mg UNSCH PRN OTHER HYPOGLYCEMIA-SEE COMMENTS; Start 07/25/17 at 22:00 Insulin Aspart (NovoLOG SUPPLEMENTAL SCALE) 1 ACHS AND 3AM SQ Last administered on 07/31/17 11:01; Start 07/26/17 at 03:00 Bumetanide (Bumex Inj) 1 mg DAILY IV PUSH Last administered on 07/31/17 08:59 ; Start 07/27/17 at 13:30 Hydralazine HCl (Apresoline) 25 mg Q8HR PO Last administered on 07/28/17 06:21 ; Start 07/27/17 at 14:00; Stop 07/28/17 at 11:15; Status DC Hydralazine HCl (Apresoline) 50 mg Q8HR PO Last administered on 07/31/17 05:38 ; Start 07/28/17 at 14:00 Bupropion HCl (Wellbutrin Sr) 150 mg DAILY PO Last administered on 07/31/17 08 :54; Start 07/29/17 at 09:00 Nifedipine (Procardia Xl) 30 mg DAILY PO Last administered on 07/30/17 09:45; Start 07/29/17 at 10:15; Stop 07/30/17 at 11:54; Status DC Nifedipine (Procardia Xl) 30 mg Q12HR PO Last administered on 07/31/17 08:57; Start 07/30/17 at 21:00 A/P Assessment and Plan A/P 1. Hypoglycemia, relative adrenal insufficiency: Glyburide on hold. Received stress dose steroids IV. this has resolved. advised to monitor his blood sugar at home and have a close f/u with his pcp. 2. Acute on chronic kidney disease stage IV: Appreciate nephrology recommendations. Creatinine remains elevated. Monitor labs. Avoid nephrotoxins. 3. History of stroke, left MCA: PT/OT. 4. Dilated cardiomyopathy, coronary artery disease: Continue metoprolol, isosorbide mononitrate, statin.echo with EF 45%. 5. Hypertension: Lisinopril on hold secondary to renal failure. continue hydralazine- will continue clonidine-increased procardia XL- 6. Diabetes mellitus with neuropathy: Continue pain control. 7. Depression: Continue citalopram, Wellbutrin. 8. GERD: PPI. 9. Normocytic anemia: Stable. Monitor H&H. 10. DVT prophylaxis: SCDs. Discharge Planning dc home with [facility] . see med list. f/u; pcp and nephrology. d/w the patient and RN. previously d/w the case management. time spent 31 min. Maite Curtis MD Jul 31, 2017 12:26
[2017-07-31] MEDS ORDERED: CLON.2 PO (12:31)
[2017-07-31] MEDS ORDERED: NIFE30TA8 PO (12:31)
[2017-07-31] MEDS ORDERED: METO-309 PO (12:31)
[2017-07-31] MEDS ORDERED: CALC667C PO (12:31)
[2017-07-31] MEDS ORDERED: HYDR-3800 PO (12:31)
--- NOTE | 2017-07-31 12:33 | HHI.DS ---
Discharge Summary Admission Date Jul 24, 2017 at 22:21 Discharge Date: Jul 31, 2017 Admitting Diagnosis Hypoglycemia (1) Hypoglycemia ICD Code: E16.2 - Hypoglycemia, unspecified Diagnosis: Principal (2) Gastroesophageal reflux disease ICD Code: K21.9 - Gastro-esophageal reflux disease without esophagitis Diagnosis: Principal (3) Hypoalbuminemia ICD Code: E88.09 - Other disorders of plasma-protein metabolism, not elsewhere classified Diagnosis: Principal (4) Normocytic anemia ICD Code: D64.9 - Anemia, unspecified Diagnosis: Principal (5) Severe uncontrolled hypertension ICD Code: I10 - Severe uncontrolled hypertension Diagnosis: Principal Status: Acute (6) Hypertension ICD Code: I10 - Hypertension Diagnosis: Principal Status: Acute (7) Ischemic cardiomyopathy ICD Code: I25.5 - Ischemic cardiomyopathy Diagnosis: Secondary Status: Acute (8) DM (diabetes mellitus), type 2, uncontrolled ICD Code: E11.9 - DM (diabetes mellitus), type 2, uncontrolled Diagnosis: Secondary Status: Acute (9) Acute worsening of stage 4 chronic kidney disease ICD Code: N18.4 - Chronic kidney disease, stage 4 (severe); N28.9 - Acute worsening of stage 4 chronic kidney disease Diagnosis: Principal Status: Acute Procedures None Brief History - From Admission Patient is a 51-year-old male redo of admission 07/24/2017. Past medical history includes coronary disease three-vessel status post CABG 5 2014, , arthritis, asthma, paroxysmal A. fib on Xarelto, depression, cardiomyopathy status post BIV -AICD by Dr. Valdivia removed secondary to sepsis, hyperlipidemia, CVA with residual left-sided weakness, coronary artery disease status post WI on aspirin, diabetes mellitus with retinopathy, neuropathy and neuropathy, hypertension, DIXIE and chronic kidney disease stage IV followed by Dr. Quintana. This gentleman presented to [facility] complaining of low blood sugar. He takes glipizide for his diabetes, and his last dose was at 9 PM last night. He says he was feeling fine, but earlier this morning had an episode of low blood sugar is baseline creatinines around 2.7. Is currently 4.95.. The fire department came and found her sugar to be 20, he was given dextrose and return to baseline so he was transported to the hospital. This happened again this evening and EMS arrived and again gave him dextrose. This time he is transported to the hospital. He currently has no complaints. He has residual left-sided weakness as well as confusion from his previous strokes. He denies chest pain, shortness of breath, fevers, abdominal pain, nausea or vomiting. He does say that he ate a turkey sandwich today. Patient has been started on D10 drip. TSH, cortisol and infectious workup is currently pending. LFTs within normal limits. He was given 50 g octreotide 1 for sulfonurea use. Acute kidney injury. CBC/BMP: 07/27/17 0553 07/30/17 0455 Significant Findings Laboratory Tests Test 07/29/17 06:38 07/30/17 04:55 Blood Urea Nitrogen 57 MG/DL (7-18) 54 MG/DL (7-18) Creatinine 4.47 MG/DL (0.60-1.30) 4.32 MG/DL (0.60-1.30) Random Glucose 113 MG/DL (74-106) 211 MG/DL (74-106) Total Protein 5.6 GM/DL (6.4-8.2) Calcium Level 7.4 MG/DL (8.5-10.1) 7.6 MG/DL (8.5-10.1) Estimat Glomerular Filtration Rate 14 ML/MIN (>89) 14 ML/MIN (>89) Protein Corrected Calcium 8.2 MG/DL (8.5-10.1) Sodium Level 134 MEQ/L (136-145) Imaging Last Impressions Renal Ultrasound 07/25/17 0000 Signed Impressions: Service Date/Time: Tuesday, July 25, 2017 08:14 - CONCLUSION: Unremarkable right kidney and urinary bladder. Nonvisualized left kidney. Sukumar Kitchen MD Lower Extremity Ultrasound 07/25/17 0000 Signed Impressions: Service Date/Time: Tuesday, July 25, 2017 08:06 - CONCLUSION: Subcutaneous edema without venous thrombosis. Yahir Bailey MD FACR Head CT 07/24/17 0000 Signed Impressions: Service Date/Time: Monday, July 24, 2017 21:12 - CONCLUSION: Exam no acute intracranial abnormality. Old left MCA distribution infarct. Mark Jett MD Chest X-Ray 07/24/17 0000 Signed Impressions: Service Date/Time: Monday, July 24, 2017 19:43 - CONCLUSION: Mild to moderate stable, compensated cardiomegaly. No acute cardiopulmonary disease demonstrated. Mark Jett MD PE at Discharge GENERAL: This is a well-nourished, well-developed patient, in no apparent distress. CARDIOVASCULAR: Regular rate and regular rhythm without murmurs, gallops, or rubs. RESPIRATORY: Clear to auscultation. Breath sounds equal bilaterally. No wheezes , rales, or rhonchi. GASTROINTESTINAL: Abdomen soft, non-tender, nondistended. Normal, active bowel sounds MUSCULOSKELETAL: s/p left BKA- mild right leg edema NEURO: Alert & Oriented x4 to person, place, time, situation. Moves all ext x4 Hospital Course 1. Hypoglycemia, relative adrenal insufficiency: Glyburide on hold. Received stress dose steroids IV. this has resolved. advised to monitor his blood sugar at home and have a close f/u with his pcp. 2. Acute on chronic kidney disease stage IV: Appreciate nephrology recommendations. Creatinine remains elevated. Monitor labs. Avoid nephrotoxins. 3. History of stroke, left MCA: PT/OT. 4. Dilated cardiomyopathy, coronary artery disease: Continue metoprolol, isosorbide mononitrate, statin.echo with EF 45%. 5. Hypertension: Lisinopril on hold secondary to renal failure. continue hydralazine- will continue clonidine-increased procardia XL- 6. Diabetes mellitus with neuropathy: Continue pain control. 7. Depression: Continue citalopram, Wellbutrin. 8. GERD: PPI. 9. Normocytic anemia: Stable. Monitor H&H. 10. DVT prophylaxis: SCDs. Pt Condition on Discharge: Good Discharge Disposition: Disch w/ Home Health Serv Discharge Time: > 30 minutes Discharge Instructions DIET: Follow Instructions for: Diabetic Diet, Renal Failure Diet Activities you can perform: Regular-No Restrictions Follow up Referrals: Nephrology PCP Follow-up New Medications: Rollator Ultra-Light (Rollator Ultra-Light) 1 Mis Mis EA .ROUTE DIRECTED, #1 0 Refills Calcium Acetate (Phosphate Bin (Calcium Acetate) 667 Mg Cap 667 MG PO TID for phosphate binder for 30 Days, CAP 0 Refills Clonidine (Catapres) 0.2 Mg Tab 0.2 MG PO Q8H for hypertension for 30 Days, #90 TAB 0 Refills Hydralazine HCl (Hydralazine HCl) 50 Mg Tablet 50 MG PO Q8HR for hypertension for 30 Days, TAB 0 Refills Metoprolol Tartrate (Lopressor) 50 Mg Tab 50 MG PO Q12H for hypertension for 30 Days, #60 TAB 0 Refills Nifedipine ER 24 HR (Nifedipine ER 24 HR) 30 Mg Tab 30 MG PO Q12HR for hypertension for 30 Days, TAB 0 Refills Continued Medications: Bupropion HCl ER 24 HR (Wellbutrin Xl 24 HR) 150 Mg Tab 150 MG PO DAILY for Control Depression, TAB 0 Refills Citalopram (Citalopram) 20 Mg Tab 20 MG PO DAILY for Control Depression, #30 TAB 0 Refills Isosorbide Mononitrate ER (Isosorbide Mononitrate ER) 120 Mg Hima 120 MG PO DAILY for Prevent Chest Pain, #30 TAB 0 Refills Omeprazole (Omeprazole) 20 Mg Tab 20 MG PO DAILY, #30 TAB 0 Refills Rosuvastatin (Crestor) 40 Mg Tab 40 MG PO DAILY for Cholesterol Management, #30 TAB 0 Refills Discontinued Medications: Glipizide (Glipizide) 5 Mg Tab 5 MG PO DAILY for Blood Sugar Management, #30 TAB 0 Refills Take 30 minutes before a meal Lisinopril (Lisinopril) 20 Mg Tab 20 MG PO DAILY, #30 TAB 0 Refills Metoprolol Tartrate (Lopressor) 50 Mg Tab 50 MG PO DAILY, #30 TAB 0 Refills Maite Curtis MD Jul 31, 2017 12:32
--- NOTE | 2017-07-31 20:17 | HHI.NPPN ---
Subjective History of Present Illness 52-year-old male known to me from before with past medical history of hypertension, diabetes mellitus, morbid obesity, sleep apnea, bronchial asthma, hyperlipidemia, atrial fibrillation, history of CVA. The patient came to the hospital because of recurrent hypoglycemia. I was called to see the patient because of elevated BUN and creatinine. The patient has known history of chronic kidney disease. He has been following with me in the office and the last time I saw him, his creatinine was around 2.7 which is probably his baseline and now he came in with a creatinine of 4.9. Additional Remarks Patient seen in AM, feeling better, no SOB and swelling in the leg is better, want to go home. Review of Systems General Constitutional: Fatigue Respiratory Lungs: SOB, Wheeze Cardiovascular Cardiac: Edema, SANCHEZ Objective Data Data Vital Signs Date Time Temp Pulse Resp B/P (MAP) Pulse Ox O2 Delivery O2 Flow Rate FiO2 07/31/17 12:00 96.7 54 17 157/77 (103) 97 07/31/17 08:00 96.5 53 18 174/ 96 07/31/17 00:00 97.8 61 18 175/79 (111) 95 07/30/17 23:47 97.8 61 18 175/79 (111) 95 -: 07/27/17 0553 07/30/17 0455 Physical Exam General Appearance: No Acute Distress, Comfortable Eyes Eye Exam: Pupils Equal Throat Throat Exam: Oral Mucosa Foraker & Moist Neck Neck Exam: Neck Supple Pulmonary Resp Exam: Breath Sounds Equal, Rhonchi, Decreased Bases, Diminished Breath Sounds Cardiology CV Exam: Regular Gastrointestinal/Abdomen GI Exam: Soft, Non-Tender, Bowel Sounds Present Extremeties Extremities Exam: Moderate Edema Neurologic Neuro Exam: Alert, Awake, Oriented Psychiatric Psych Exam: Appropriate Responses Assessment/Plan Assessment Summary: NICOLAS/Acute Renal Failure, Fluid/Volume Overload, CKD Stage IV Electrolyte Assessment: Metabolic Acidosis Problem List: (1) HTN (hypertension) ICD Codes: I10 - HTN (hypertension) Status: Chronic (2) DM (diabetes mellitus) ICD Codes: E11.9 - DM (diabetes mellitus) Status: Chronic (3) Anemia ICD Codes: D64.9 - Anemia Status: Acute (4) Edema ICD Codes: R60.9 - Edema, unspecified Status: Acute (5) Acute worsening of stage 4 chronic kidney disease ICD Codes: N18.4 - Chronic kidney disease, stage 4 (severe); N28.9 - Acute worsening of stage 4 chronic kidney disease Status: Acute (6) Acute kidney injury ICD Codes: N17.9 - Acute kidney injury Status: Acute Plan Patient has advance stage 4 chronic kidney disease. Now develop also NICOLAS. Creatinine is better. On low dose Bumex. On Nifedipine, Metoprolol and Hydralazine. BP is elevated but better. Creatinine is better, for D/C , to follow with me as out patient. Problem Qualifiers (1) HTN (hypertension): Qualified Codes: I10 - Essential (primary) hypertension Judy Quintana MD Jul 31, 2017 20:17
== END 2017-07-31 16:30 | disposition home health service (06) | DRG 683 ==
LOC: NEPE 18:48 → NEDA 22:21 → HIMN 07-25 03:35 → N07B 07-27 23:16
PROVIDERS: ADMIT Internal Medicine; ATTEND Internal Medicine
DX: N17.9 Acute kidney failure, unspecified (principal); I42.0 Dilated cardiomyopathy; E87.2 Acidosis; E27.40 Unspecified adrenocortical insufficiency; E11.21 Type 2 diabetes mellitus with diabetic nephropathy; I69.354 Hemiplegia and hemiparesis following cerebral infarction affecting left non-dominant side; E11.649 Type 2 diabetes mellitus with hypoglycemia without coma; E88.09 Other disorders of plasma-protein metabolism, not elsewhere classified; E11.22 Type 2 diabetes mellitus with diabetic chronic kidney disease; E11.40 Type 2 diabetes mellitus with diabetic neuropathy, unspecified; I12.9 Hypertensive chronic kidney disease with stage 1 through stage 4 chronic kidney disease, or unspecified chronic kidney disease; N18.4 Chronic kidney disease, stage 4 (severe); I48.0 Paroxysmal atrial fibrillation; E11.65 Type 2 diabetes mellitus with hyperglycemia; E11.3299 Type 2 diabetes mellitus with mild nonproliferative diabetic retinopathy without macular edema, unspecified eye; K21.9 Gastro-esophageal reflux disease without esophagitis; I25.10 Atherosclerotic heart disease of native coronary artery without angina pectoris; I25.2 Old myocardial infarction; D64.9 Anemia, unspecified; G47.33 Obstructive sleep apnea (adult) (pediatric); E78.5 Hyperlipidemia, unspecified; E66.01 Morbid (severe) obesity due to excess calories; F32.9 Major depressive disorder, single episode, unspecified; F41.9 Anxiety disorder, unspecified; Z68.38 Body mass index [BMI] 38.0-38.9, adult; Z79.84 Long term (current) use of oral hypoglycemic drugs; Z86.14 Personal history of Methicillin resistant Staphylococcus aureus infection; Z87.891 Personal history of nicotine dependence; Z89.512 Acquired absence of left leg below knee; Z95.1 Presence of aortocoronary bypass graft; Z95.810 Presence of automatic (implantable) cardiac defibrillator; Z98.84 Bariatric surgery status
CPT/HCPCS: 70450; 71010; 76775; 76937; 80048; 80053; 81001; 82533; 82570; 82948; 83525; 83735; 84100; 84155; 84300; 84443; 84484; 84681; 85025; 85610; 85730; 87040; 87205; 87641; 93005; 93306; 93971; 94150; 94640; 94664; 96361; 96372; 96374; 96375; J0360; J1720; J1815; J2270; J2354; J2405; J7070; J7121

== ENCOUNTER → 2018-02-07 | Day surgery (SDC) | payer OTHER, MEDICAID ==
[~2018-02-07] VITALS: Ht 182.9 cm; Wt 122.1 kg
[~2018-02-07] MED LIST changes: +ACETAMINOPHEN 1000 MG/100 ML 100 ML IV ONE; +APIX5TAB PO; +BUPIVACAINE/EPINEPHRINE 0.25% 50 ML VIAL ONE; +BUPR150XL PO; +CALC667C PO; +CHLORHEXIDINE GLUCONATE 2 % 1 PACK (2 CLOTHS) TOPICAL PRN; +CLON0.1T PO; +FAMOTIDINE 20 MG/2 ML VIAL ONE; +HYDR-3800 PO; +INSULIN HUMAN REGULAR 1,000 UNITS/10 ML VIAL SQ PRN; +LACT10SO PO; +LACTATED RINGER'S 1000 ML IV PRN; +LIDOCAINE HCL 1% PF 5 ML SYRINGE OTHER ONE; -LISI-515 PO; +METOPROLOL TARTRATE 25 MG TAB PO PRN; +NIFE30TA8 PO; -OMEP20TA PO; +OMEP20TA93 PO; +ONDANSETRON HCL 4 MG/2 ML VIAL IV ONE; +PENI500T PO; +PERC10TA27 PO; +POVIDONE IODINE 5% (ANTISEPSIS KIT) 4 APPLICATIONS EACH NARE PRN; +PROPOFOL 200 MG/20 ML AMP IV ONE; +ROCURONIUM INJ 50 MG/5 ML SYRINGE IV PUSH ONE; +ROSU20 PO; -ROSU40 PO; +SODI650T PO; +SODIUM CHLORID 0.9% 500 ML IV PRN; -XARE15TA PO
[2018-02-07 09:33] LABS: AUTOMATED NEUTROPHIL # 5.2 TH/MM3 (1.8-7.7); BASOPHIL # 0.1 TH/MM3 (0-0.2); EOSINOPHIL # 0.4 TH/MM3 (0-0.4); EOSINOPHIL % 4.7 % (0.0-4.0); HEMATOCRIT 28.9 % (39.0-51.0); HEMOGLOBIN 9.6 GM/DL (13.0-17.0); LYMPH % 22.8 % (9.0-44.0); LYMPHOCYTE # 1.9 TH/MM3 (1.0-4.8); MEAN CELL VOLUME 93.5 FL (80.0-100.0); MEAN CORPUSCULAR HEMOGLOBIN 30.9 PG (27.0-34.0); MONO % 7.7 % (0.0-8.0); MONOCYTE # 0.6 TH/MM3 (0-0.9); NEUT % 63.8 % (16.0-70.0); PLATELET COUNT 185 TH/MM3 (150-450); RED CELL DISTRIBUTION WIDTH 14.2 % (11.6-17.2); WHITE BLOOD COUNT 8.2 TH/MM3 (4.0-11.0)
[2018-02-07 09:55] LABS: BICARBONATE 19.4 MEQ/L (21.0-32.0); CALCIUM 7.7 MG/DL (8.5-10.1); CREATININE 5.28 MG/DL (0.60-1.30)
--- NOTE | 2018-02-07 11:58 | PD.PROCEDR ---
Procedure Note Procedure Operative report Preoperative diagnosis chronic kidney disease, desire for peritoneal dialysis catheter placement Postoperative diagnosis same Procedure Laparoscopic assisted placement of peritoneal dialysis catheter Surgeon Daniel Ramírez MD Anesthesia General endotracheal Indications for procedure Pleasant 52-year-old gentleman with multiple medical issues who has experienced increasing BUN and creatinine and recommendations were made for dialysis. He is desirous of peritoneal dialysis. Intraoperative findings Successful placement of peritoneal dialysis catheter with curled portion and most dependent portion of pelvis. Foxworth-neck catheter used with exit in right upper quadrant as marked by dialysis center. Estimated blood loss less than 5 mL. Description of procedure in detail The patient was identified as Anish Bear taken to the operating room and placed in the supine position. Sequential compression device placed on right lower extremity. Following induction of adequate general endotracheal anesthesia the patient's abdomen was prepped and draped in usual sterile fashion with Betadine. A timeout procedure was performed. Following completion of timeout procedure everyone's satisfaction within the room local anesthetic was injected the proposed incision sites. A left lateral subcostal 2 cm transverse incision carried out scalpel and dissection continued posteriorly through subcutaneous fatty tissue in layers of the abdominal wall hemostat and finger dissection. Surgeon's finger entered the peritoneal cavity and a 5 mm balloon trocar was placed in the peritoneal cavity splint inflated to 2 insufflation to level of 15 mmHg ensued. A single left-sided 5 mm trochars placed in peritoneal cavity under direct laparoscopic view after incision in the skin with a scalpel. A site was selected in the infraumbilical area for entry of the peritoneal dialysis catheter. A transverse incision was carried out with a scalpel and a 5 mm trocar was used to develop a preperitoneal plane. This tunneled inferiorly to above the dome of the bladder and the peritoneum was entered. Through the trocar a curled portion of the peritoneal dialysis catheter was placed in the dependent portion of the pelvis and held there with a grasper. The trocar was removed from over the top of the proximal peritoneal dialysis catheter. The catheter was tunneled proximally to the selected incision site which was carried out the scalpel. The swan-neck portion of the catheter was then tunneled using the Glynn dilator to the marked exit site. Either end of the catheter was then cut to an appropriate length and the titanium connector was placed on into both sides of the catheter. His home position 3-0 silk ties. Titanium tips were then placed on the end of the catheter. A liter of fluid was run through the catheter without obstruction. About 800 cc of fluid was run out of the catheter approving a good catheter function. A plastic cap was placed of the titanium tips. Photographs are taken and completed placement. Trochars removed under direct visualization was notes a bleeding from trocar sites. The abdomen was desufflated the subcostal port which is then removed. [address] posterior and anterior fascial layers. Skin incisions were approximated for Monocryl subcuticular sutures. Dressings were applied Mastisol and brown Steri-Strips. A Biopatch was placed around the catheter exit site 4 x 4's and large Tegaderms were used to cover the catheter and the incisions associated with the catheter in their entirety. Patient tolerated the procedure without apparent complication. Sponge needle and instrument counts were correct at the end of the case. Daniel Ramírez MD Feb 07, 2018 11:58
[2018-02-07 12:25] VITALS: TEMP 96.9
[2018-02-07 12:54] VITALS: PULSE 53; RESP 18; O2SAT 94
[2018-02-07 13:10] VITALS: BP 110/56
== END | disposition home or self-care (01) ==
LOC: HSDC 08:34
PROVIDERS: ATTEND Surgery Trauma Surgery
DX: N18.4 Chronic kidney disease, stage 4 (severe) (principal); I12.9 Hypertensive chronic kidney disease with stage 1 through stage 4 chronic kidney disease, or unspecified chronic kidney disease; E11.9 Type 2 diabetes mellitus without complications; E78.5 Hyperlipidemia, unspecified; J44.9 Chronic obstructive pulmonary disease, unspecified; Z86.73 Personal history of transient ischemic attack (TIA), and cerebral infarction without residual deficits; Z99.2 Dependence on renal dialysis
CPT/HCPCS: 00790; 49324; 80048; 85025; C1750; J0131; J0690; J2405; J3010; J7040